=== PATIENT | female | born 1995 | race African-American/Black ===

== ENCOUNTER 2016-06-17 13:50 | Emergency (ER) | payer OTHER ==
[~2016-06-17] VITALS: Ht 114.3 cm; Wt 123.4 kg
[2016-06-17 14:05] VITALS: BP 200/87
[2016-06-17 14:58] LABS: OBC FLU VALID
--- NOTE | 2016-06-17 16:12 | RAD ---
Chest, 2 views, 06/17/2016: History: Cough, congestion, shortness of breath The AP view is lordotic in nature. The depth of inspiration is poor. No definite infiltrate is seen. The heart is at the upper limits of normal in size. There is no evidence of pleural fluid. IMPRESSION: Suboptimal exam demonstrating no acute abnormality.
[2016-06-17] MEDS ORDERED: PRED20TA PO (16:25)
[2016-06-17] MEDS ORDERED: BENZ200C39 PO (16:25)
[2016-06-17] MEDS ORDERED: PROAIR HFA8.5 GM INH (16:26)
[2016-06-17] MEDS ORDERED: FLUT1DIS5 IH (16:26)
[2016-06-17] MEDS ORDERED: ALBU2.5V5 NEB (16:26)
--- NOTE | 2016-06-17 16:26 | PHYS DOC ---
Past Medical History Past Medical History: Asthma Past Surgical History: Other Additional Past Surgical Histo: cleft lip and palate surgery as an Additional Information: nonsmoker Alcohol Use: None Drug Use: None Adult General Chief Complaint Chief Complaint: ASTHMA HPI HPI Patient is a 20 year old female with history of asthma who presents with cough and shortness of breath for 2 days. She states that the cough is nonproductive. She also has nasal congestion. She denies fever, sore throat, ear pain, chest pain, vomiting, diarrhea, or abdominal pain. She has been using her albuterol and Advair inhalers as well as Singulair at home for her asthma. She was last hospitalized for her asthma in September of last year. She has never required intubation for her asthma. She did receive a flu shot this year. The patient presented to the emergency department via EMS. She received a nebulizer treatment in route and reports improved breathing after the nebulizer treatment. Her PCP is Dr. Mireles. Review of Systems Review of Systems Constitutional: Denies fever or chills. [] Eyes: Denies change in visual acuity, redness, or eye pain. [] HENT: Denies ear pain or sore throat. Reports nasal congestion. Respiratory: Reports nonproductive cough and shortness of breath. Cardiovascular: Denies chest pain, palpitations or edema. [] GI: Denies abdominal pain, nausea, vomiting, bloody stools or diarrhea. [] Musculoskeletal: Denies back pain or joint pain. [] Integument: Denies rash or skin lesions. [] Neurologic: Denies headache, focal weakness or sensory changes. [] All systems reviewed and negative unless otherwise stated in the HPI. Allergies Allergies Allergies Coded Allergies Type Severity Reaction Last Updated Verified No Known Drug Allergies 11/20/14 No Physical Exam Physical Exam Constitutional: Well developed, well nourished, no acute distress, non-toxic appearance. [] HENT: Normocephalic, atraumatic, bilateral external ears normal, oropharynx moist, no oral exudates, nose normal. Bilateral TMs without erythema or bulging. There is no posterior pharyngeal erythema or tonsillar edema. Bilateral nasal turbinates are swollen and erythematous with purulent drainage. Eyes: PERRLA, EOMI, conjunctiva normal, no discharge. [] Neck: Normal range of motion, no tenderness, supple, no stridor. [] Cardiovascular: Heart rate regular rhythm, no murmur [] Lungs & Thorax: Bilateral breath sounds clear to auscultation without wheezes, rales, or rhonchi. Skin: Warm, dry, no erythema, no rash. [] Neurologic: Alert and oriented X 3, normal motor function, normal sensory function, no focal deficits noted. [] Psychologic: Affect normal, judgement normal, mood normal. [] Current Patient Data Vital Signs Vital Signs Date Time Temp Pulse Resp B/P Pulse Ox O2 Delivery O2 Flow Rate FiO2 06/17/16 14:05 98.2 116 22 99 Room Air 98.2 Lab Values Laboratory Tests Test 06/17/16 14:25 06/17/16 15:26 Influenza Type A Antigen Negative (NEGATIVE) Influenza Type B Antigen Negative (NEGATIVE) POC Urine HCG, Qualitative Hcg negative (Negative) EKG EKG [] Radiology/Procedures Radiology/Procedures REASON: cough, soa PROCEDURE: CHEST PA & LATERAL Chest, 2 views, 06/17/2016: History: Cough, congestion, shortness of breath The AP view is lordotic in nature. The depth of inspiration is poor. No definite infiltrate is seen. The heart is at the upper limits of normal in size. There is no evidence of pleural fluid. IMPRESSION: Suboptimal exam demonstrating no acute abnormality. Course & Med Decision Making Course & Med Decision Making Pertinent Labs and Imaging studies reviewed. (See chart for details) [] Dragon Disclaimer Dragon Disclaimer This electronic medical record was generated, in whole or in part, using a voice recognition dictation system. Departure Departure Impression: Primary Impression: Bronchitis Additional Impression: Asthma Disposition: 01 HOME, SELF-CARE Condition: STABLE Referrals: FARA MIRELES MD (PCP) Patient Instructions: Acute Bronchitis, [id number], Asthma, Adult, Easy-to- Read Additional Instructions: Your flu swab is negative. Chest x-ray does not show any pneumonia. Please complete all the prescribed steroids, even if you are feeling better. Please continue to use your at home asthma medications as directed. Please follow-up with your primary care doctor within the next week, sooner if concerns. Return to the emergency department if you have any new or concerning symptoms. Scripts Fluticasone/Salmeterol (Advair 500-50 Diskus)1 Each Disk.w.dev1 Puff IH BID #1 INHALER Prov:SEN SALINAS 06/17/16 Albuterol Sulfate (Albuterol Sulfate Neb Soln)2.5 Mg/3 Ml Vial.neb1 Vial NEB PRN Q4HRS PRN SHORTNESS OF BREATH #50 VIAL Prov:SEN SALINAS 06/17/16 Albuterol Sulfate (Proair Hfa Inhaler)8.5 Gm Hfa.aer.ad1 Puff INH Q4HRS PRN SHORTNESS OF BREATH #1 INHALER Prov:SEN SALINAS 06/17/16 Benzonatate 200 Mg Capsule1 Cap PO TID #30 CAP Prov:SEN SALINAS 06/17/16 Prednisone 20 Mg Qrhutm80 Mg PO DAILY 5 Days Prov:SEN SALINAS 06/17/16 Problem Qualifiers Additional Impression: Asthma Asthma severity: unspecified severity Asthma complication type: uncomplicated Qualified Code: J45.909 - Unspecified asthma, uncomplicated SEN SALINAS Jun 17, 2016 16:26
== END 2016-06-17 16:37 | disposition home or self-care (01) ==
LOC: ER 13:50
DX: J45.909 Unspecified asthma, uncomplicated (principal); Z79.899 Other long term (current) drug therapy; Z87.730 Personal history of (corrected) cleft lip and palate
CPT/HCPCS: 71020; 81025; 87804; 99285-25

== ENCOUNTER 2021-07-31 16:34 | Inpatient (IN) | payer MEDICAID, OTHER ==
[~2021-07-31] VITALS: Ht 119.4 cm; Wt 94.5 kg
[2021-07-31] VITALS (8 sets, daily range): BP systolic 105–157; BP diastolic 57–85
[~2021-07-31 16:34] MED LIST: ALBU2.5V5 NEB; ALBU2.5V8 INH; BENZ200C47 PO; FLUT1DIS5 IH; PRED20TA PO
[2021-07-31] MEDS ORDERED: IV NORMAL SALINE 1000ML BAG 1,000 ML IV ONE (17:30)
--- NOTE | 2021-07-31 17:34 | PHYS DOC ---
Past Medical History Past Medical History: Asthma, Diabetes-Type II (ELLA WASHINGTON APRN) Past Surgical History: No Surgical History Additional Past Surgical Histo: cleft lip and palate surgery as an infant (ELLA WASHINGTON APRN) Smoking Status: Never Smoker Alcohol Use: None Drug Use: None (ELLA WASHINGTON APRN) General Adult EDM: Chief Complaint: NAUSEA/VOMITING/DIARRHEA HPI: HPI: Patient is a 26-year-old female who presents today with vomiting. Her sister is at the bedside and is the primary historian during this HPI. Sister states that patient started vomiting approximately 1 week ago, she was seen by her primary care physician Dr. Shrestha at the [facility] on Tuesday, Dr. Shrestha thought the nausea and vomiting was related to her COVID booster injection that she received last week, and she thought her symptoms would improve, she presents today because her vomiting is not improved, and sister states over the last 2 days she has had decreased level of consciousness. S ister does state the patient is at type II diabetic that is supposed to take insulin on a daily basis, sister states the patient is noncompliant does not take that medication as prescribed she only takes her oral diabetes medications, she does not check her blood sugars on a regular basis according to the sister. (ELLA WASHINGTON APRN) Review of Systems: Review of Systems: Constitutional: Denies fever or chills. [] Eyes: Denies change in visual acuity. [] HENT: Denies nasal congestion or sore throat. [] Respiratory: Denies cough or shortness of breath. [] Cardiovascular: Denies chest pain or edema. [] GI: nausea, vomiting, denies bloody stools or diarrhea. [] : Denies dysuria. [] Musculoskeletal: Denies back pain or joint pain. [] Integument: Denies rash. [] Neurologic: decrease LOC Denies headache, focal weakness or sensory changes. [] Endocrine: Denies polyuria or polydipsia. [] Lymphatic: Denies swollen glands. [] Psychiatric: Denies depression or anxiety. [] (ELLA WASHINGTON APRN) Heart Score: C/O Chest Pain: No Risk Factors: Risk Factors: DM, Current or recent (<one month) smoker, HTN, HLP, family history of CAD, obesity. Risk Scores: Score 0 - 3: 2.5% MACE over next 6 weeks - Discharge Home Score 4 - 6: 20.3% MACE over next 6 weeks - Admit for Clinical Observation Score 7 - 10: 72.7% MACE over next 6 weeks - Early Invasive Strategies (ELLA WASHINGTON APRN) Allergies: Allergies: Allergies Coded Allergies Type Severity Reaction Last Updated Verified potassium chloride Allergy Intermediate 07/31/21 Yes (ELLA WASHINGTON APRN) Physical Exam: PE: Constitutional: Obese female in moderate distress HENT: Normocephalic, atraumatic, bilateral external ears normal, oropharynx dry, no oral exudates, nose normal. [] Eyes: PERRLA, EOMI, conjunctiva normal, no discharge. [] Neck: Normal range of motion, no tenderness, supple, no stridor. [] Cardiovascular:Heart rate tachycardic, peripheral pulses are 1+ Lungs & Thorax: Bilateral breath sounds clear to auscultation, increased work of breathing noted Abdomen: Bowel sounds normal, soft, no tenderness, no masses, no pulsatile masses. [] Skin: Warm, dry, no erythema, no rash. [] Back: No tenderness, no CVA tenderness. [] Extremities: No tenderness, no cyanosis, no clubbing, ROM intact, no edema. [] Neurologic: Alert and oriented X 3, normal motor function, normal sensory function, no focal deficits noted. [] Psychologic: Affect normal, judgement abnormal , mood normal. [] (ELLA WASHINGTON APRN) Current Patient Data: Labs: Laboratory Tests Test 07/31/21 17:24 07/31/21 17:29 O2 Saturation 97 % Arterial Blood pH 7.29 Arterial Blood pCO2 at Patient Temp < 15 mmHg Arterial Blood pO2 at Patient Temp 92 mmHg Arterial Blood HCO3 6 mmol/L Arterial Blood Base Excess -18 mmol/L FiO2 Room air White Blood Count 30.3 x10^3/uL Red Blood Count 3.97 x10^6/uL Hemoglobin 10.7 g/dL Hematocrit 35.5 % Mean Corpuscular Volume 90 fL Mean Corpuscular Hemoglobin 27 pg Mean Corpuscular Hemoglobin Concent 30 g/dL Red Cell Distribution Width 16.1 % Platelet Count 231 x10^3/uL Neutrophils (%) (Auto) 93 % Lymphocytes (%) (Auto) 2 % Monocytes (%) (Auto) 4 % Eosinophils (%) (Auto) 0 % Basophils (%) (Auto) 1 % Neutrophils # (Auto) 28.3 x10^3/uL Lymphocytes # (Auto) 0.5 x10^3/uL Monocytes # (Auto) 1.2 x10^3/uL Eosinophils # (Auto) 0.1 x10^3/uL Basophils # (Auto) 0.2 x10^3/uL Platelet Estimate Pending Maternal Serum HCG Beta Subunit < 1 mIU/mL Sodium Level 121 mmol/L Potassium Level 3.9 mmol/L Chloride Level 83 mmol/L Carbon Dioxide Level 9 mmol/L Anion Gap 29 Blood Urea Nitrogen 24 mg/dL Creatinine 2.2 mg/dL Estimated GFR (Cockcroft-Gault) 32.6 BUN/Creatinine Ratio 11 Glucose Level 868 mg/dL Lactic Acid Level 6.0 mmol/L Calcium Level 9.3 mg/dL Total Bilirubin 1.5 mg/dL Aspartate Amino Transf (AST/SGOT) 62 U/L Alanine Aminotransferase (ALT/SGPT) 50 U/L Alkaline Phosphatase 153 U/L Troponin I High Sensitivity 11 ng/L Total Protein 8.7 g/dL Albumin 2.5 g/dL Albumin/Globulin Ratio 0.4 Current Medications Medications (Trade) Dose Ordered Sig/Marjorie Route PRN Reason Start Time Stop Time Status Last Admin Dose Admin Sodium Chloride 1,000 ml @ 999 mls/hr 1X ONCE IV 07/31/21 17:30 07/31/21 18:30 DC 07/31/21 17:30 Ondansetron HCl (Zofran) 4 mg 1X ONCE IVP 07/31/21 18:30 07/31/21 18:31 DC Ondansetron HCl (Zofran) 4 mg PRN Q8HRS PRN IVP NAUSEA/VOMITING 07/31/21 19:00 08/01/21 18:59 Sodium Chloride 1,000 ml @ 1,000 mls/hr Q1H IV 07/31/21 19:00 07/31/21 19:59 Insulin Human Regular 100 unit/ Sodium Chloride 101 ml @ 0 mls/hr CONT PRN PRN IV PER PROTOCOL 07/31/21 19:00 Potassium Chloride/Water 100 ml @ 100 mls/hr PRN Q1HR PRN IV SEE COMMENTS 07/31/21 19:00 UNV Vital Signs: Vital Signs Date Time Temp Pulse Resp B/P (MAP) Pulse Ox O2 Delivery O2 Flow Rate FiO2 07/31/21 20:07 160 44 121/64 (83) 100 Room Air 07/31/21 19:37 163 18 128/68 (88) 100 Room Air 07/31/21 18:55 154 18 125/58 (80) 99 Room Air 07/31/21 18:24 148 28 64/56 (59) 99 Room Air 07/31/21 17:12 97.6 157 40 191/101 (131) 98 97.6 Vital Signs Date Time Temp Pulse Resp B/P (MAP) Pulse Ox O2 Delivery O2 Flow Rate FiO2 07/31/21 17:12 97.6 157 40 191/101 (131) 98 97.6 (ELLA WASHINGTON APRN) EKG: EKG: EKG done at [address] Angulo at 1803 shows sinus tachycardia at a rate of 153 with a NV interval of 124 ms with a QTC of 416 ms no STEMI [] EKG #2 done at [address] Hernandez at 1918 shows sinus tachycardia at a rate of 155 with PACs noted NV interval 144 ms with a QTC of 423 ms no STEMI (ELLA WASHINGTON APRN) Radiology/Procedures: Radiology/Procedures: [REASON: decrease mental status PROCEDURE: CT HEAD WO CONTRAST EXAM: CT HEAD WITHOUT CONTRAST. HISTORY: Altered mental status. TECHNIQUE: Computed tomography of the head was performed without intravenous contrast. One or more of the following individualized dose reduction techniques were utilized for this examination: 1. Automated exposure control. 2. Adjustment of the mA and/or kV according to patient size. 3. Use of iterative reconstruction technique. COMPARISON: None. FINDINGS: There is no intracranial hemorrhage. Slater-white differentiation is preserved. The ventricles are normal in size and position. The visualized paranasal sinuses appear clear. The orbits are unremarkable. The temporal bones are unremarkable. The calvarium reveals no suspicious lesions. IMPRESSION: 1. No acute intracranial findings. Electronically signed by: Sunday Fernandez MD (07/31/2021 7:10 PM) [facility]] (ELLA WASHINGTON APRN) Course & Med Decision Making: Course & Med Decision Making Pertinent Labs and Imaging studies reviewed. (See chart for details) 1715 [id number] glucose done at the bedside read high. [address] Perrin regarding this patient about admitting to the intensive care unit for DKA he is agreeable to admitting this patient, I will institute an IV insulin drip, and continue IV fluids. (ELLA WASHINGTON APRN) Course & Med Decision Making Patients Care and treatment plan provided by ER Nurse Practitioner. I reviewed test results. Recommended IV Fluids Insulin Patient's chart reviewed. Patient admitted to hospitalist-- who evaluated patient IN ER. (FRNAK HERNANDEZ DO) Dragon Disclaimer: Dragon Disclaimer: This electronic medical record was generated, in whole or in part, using a voice recognition dictation system. (ELLA WASHINGTON APRN) Departure Departure Impression: Primary Impression: DKA (diabetic ketoacidosis) Qualified Codes: E11.10 - Type 2 diabetes mellitus with ketoacidosis without coma Disposition: ADMITTED INPATIENT Admitting Physician: NADEEM (ELLA WASHINGTON APRN) Condition: GUARDED ELLA WASHINGTON APRN Jul 31, 2021 17:33 FRANK HERNANDEZ DO Jul 31, 2021 20:37
[2021-07-31 17:43] LABS: BASO # 0.2 x10^3/uL (0.0-0.2); BASO % 1 % (0-3); EOS # 0.1 x10^3/uL (0.0-0.7); EOS % 0 % (0-3); HEMATOCRIT 35.5 % (36.0-47.0); HEMOGLOBIN 10.7 g/dL (12.0-15.5); LYMPH # 0.5 x10^3/uL (1.0-4.8); LYMPH % 2 % (24-48); MEAN CORPUSCULAR HEMOGLOBIN 27 pg (25-35); MEAN CORPUSCULAR HGB CONC 30 g/dL (31-37); MEAN CORPUSCULAR VOLUME 90 fL (79-100); MONO # 1.2 x10^3/uL (0.0-1.1); MONO % 4 % (0-9); NEUT # 28.3 x10^3/uL (1.8-7.7); NEUT % 93 % (31-73); PLATELET COUNT 231 x10^3/uL (140-400); RED BLOOD COUNT 3.97 x10^6/uL (3.50-5.40); RED CELL DISTRIBUTION WIDTH 16.1 % (11.5-14.5); WHITE BLOOD COUNT 30.3 x10^3/uL (4.0-11.0)
[2021-07-31 18:00] LABS: BASE EXCESS ABG -18 mmol/L (-3-3); HCO3 ABG 6 mmol/L (21-28); PO2 ABG 92 mmHg (85-108); SAT O2 ABG 97 % (92-99)
[2021-07-31 18:01] LABS: FIO2 ABG Room Air
[2021-07-31 18:04] LABS: ALBUMIN 2.5 g/dL (3.4-5.0); ALBUMIN/GLOBULIN RATIO 0.4 (1.0-1.7); CALCIUM 9.3 mg/dL (8.5-10.1); CREATININE 2.2 mg/dL (0.6-1.0); GFR 32.6; POTASSIUM 3.9 mmol/L (3.5-5.1); TOTAL BILIRUBIN 1.5 mg/dL (0.2-1.0); TOTAL PROTEIN 8.7 g/dL (6.4-8.2)
[2021-07-31] MEDS ORDERED: ONDANSETRON PF 4 MG/2 ML VIAL. IVP ONE (18:30)
[2021-07-31] MEDS ORDERED: POTASSIUM CHLORIDE 10MEQ 100 ML IV PRN (19:00)
[2021-07-31] MEDS ORDERED: IV NORMAL SALINE 1000ML BAG 1,000 ML IV SCH (19:00)
[2021-07-31] MEDS ORDERED: ONDANSETRON PF 4 MG/2 ML VIAL. IVP PRN ×2 (19:00→21:15)
--- NOTE | 2021-07-31 19:12 | RAD ---
EXAM: CT HEAD WITHOUT CONTRAST. HISTORY: Altered mental status. TECHNIQUE: Computed tomography of the head was performed without intravenous contrast. One or more of the following individualized dose reduction techniques were utilized for this examination: 1. Automated exposure control. 2. Adjustment of the mA and/or kV according to patient size. 3. Use of iterative reconstruction technique. COMPARISON: None. FINDINGS: There is no intracranial hemorrhage. Slater-white differentiation is preserved. The ventricle s are normal in size and position. The visualized paranasal sinuses appear clear. The orbits are unremarkable. The temporal bones are un remarkable. The calvarium reveals no suspicious lesions. IMPRESSION: 1. No acute intracranial findings. Electronically signed by: Sunday Fernandez MD (07/31/2021 7:10 PM) [facility]
--- NOTE | 2021-07-31 19:37 | RAD ---
EXAM: CHEST ONE VIEW. HISTORY: Shortness of breath. COMPARISON: 06/17/2016. FINDINGS: A frontal view of the chest is obtained. The inspiration is small and the projection lordotic. There is no pneumothorax or pleural effusion. P rominence of the heart size is likely projectional. IMPRESSION: 1. Projectional limitations. No confluent infiltrates. Electronically signed by: Sunday Fernandez MD (07/31/2021 7:35 PM) [facility]
[2021-07-31 19:52] LABS: % BANDS 30 % (0-9); % LYMPHS 3 % (24-48); % METAS 1 % (0-0); % MONOS 4 % (0-10); % SEGS 62 % (35-66)
[2021-07-31 19:54] LABS: PLT ESTIMATE ADEQUATE (ADEQUATE); TOXIC VACUOLATION MOD
--- NOTE | 2021-07-31 21:13 | PDOC1 ---
History and Physical Date of Admission Date of Admission DATE: 07/31/21 TIME: 20:54 Identification/Chief Complaint Chief Complaint Nausea and vomiting Source Source: Patient History of Present Illness History of Present Illness Patient is a 26-year-old female with past medical history DM2, asthma, HTN, who presents to the ED with complaints of nausea and vomiting. Patient states she has been having nausea and vomiting since 07/15/2021. For type 2 diabetes she takes Januvia, Metformin, and insulin. Along with nausea and vomiting she does admit to urinary frequency over the same time period. Patient admits to analy a lways being compliant with her home insulin. She lives at home with her sisters and 2 nieces. Labs admission showed WBC 30.3, hemoglobin 10.7, hematocrit 35.5, sodium 121, bicarb 9, BUN 24, creatinine 2.2, CBG 868, lactic acid 6.0, albumin 2.5, anion gap 29. Patient was given 2 L normal saline and initiated on insulin drip and DKA protocol. She will be admitted to the ICU for further medical management. Past Medical History Cardiovascular: HTN Pulmonary: Asthma Endocrine: Diabetes Past Surgical History Past Surgical History Cleft lip repair Family History Family History: Hypertension Social History Smoke: No ALCOHOL: none Drugs: None Current Problem List Problem List Problems Medical Problems: (1) DKA (diabetic ketoacidosis) Status: Acute Current Medications Current Medications Current Medications Sodium Chloride 1,000 ml @ 999 mls/hr 1X ONCE IV Last administered on 07/31/21at 17:30; Start 07/31/21 at 17:30; Stop 07/31/21 at 18:30; Status DC Ondansetron HCl (Zofran) 4 mg 1X ONCE IVP Last administered on 07/31/21at 20:04; Start 07/31/21 at 18:30; Stop 07/31/21 at 18:31; Status DC Ondansetron HCl (Zofran) 4 mg PRN Q8HRS PRN IVP NAUSEA/VOMITING; Start 07/31/21 at 19:00; Stop 08/01/21 at 18:59 Sodium Chloride 1,000 ml @ 1,000 mls/hr Q1H IV Last administered on 07/31/21at 19:40; Start 07/31/21 at 19:00; Stop 07/31/21 at 19:59; Status DC Insulin Human Regular 100 unit/ Sodium Chloride 101 ml @ 0 mls/hr CONT PRN PRN IV PER PROTOCOL; Start 07/31/21 at 19:00 Potassium Chloride/Water 100 ml @ 100 mls/hr PRN Q1HR PRN IV SEE COMMENTS; Start 07/31/21 at 19:00 Active Scripts Active Advair 500-50 Diskus (Fluticasone/Salmeterol) 1 Each Disk.w.dev 1 Puff IH BID Albuterol Sulfate Neb Soln (Albuterol Sulfate) 2.5 Mg/3 Ml Vial.neb 1 Vial NEB PRN Q4HRS PRN Proair Hfa Inhaler (Albuterol Sulfate) 8.5 Gm Hfa.aer.ad 1 Puff INH Q4HRS PRN Benzonatate 200 Mg Capsule 1 Cap PO TID Prednisone 20 Mg Tablet 40 Mg PO DAILY 5 Days Allergies Allergies: Coded Allergies: potassium chloride (Verified Adverse Reaction, Unknown, "PALMS PEEL", 07/31/21) ROS Review of System GENERAL: No history of weight change, weakness or fevers. SKIN: No bruising, hair changes or rashes. EYES: No blurred, double or loss of vision. NOSE AND THROAT: No history of nosebleeds, hoarseness or sore throat. HEART: Denies chest pain, denies palpitations. LUNGS: Denies cough, hemoptysis, wheezing or shortness of breath. GASTROINTESTINAL: Nausea and vomiting. Denies abdominal pain. GENITOURINARY: Urinary frequency and urgency. Denies dysuria, hematuria. NEUROLOGIC: Denies history of numbness, tingling, tremor or weakness. PSYCHIATRIC: Denies anxiety, denies depression. ENDOCRINE: No history of heat or cold intolerance, polyuria or polydipsia. EXTREMITIES: Denies muscle weakness, joint pain, pain on walking or stiffness. Physical Exam Physical Exam General: Alert, Oriented X3, Cooperative, no acute distress HEENT: Cleft lip, EOMI Lungs: Decreased breath sounds bilaterally Heart: Tachycardic Cardiovascular: S1, S2, S3 Abdomen: Normal bowel sounds, Soft, No tenderness Extremities: Bilateral leg edema Skin: No breakdown, No significant lesion Neuro: Normal speech, Sensation intact Psych/Mental Status: Mental status NL, Mood NL Vitals Vitals Vital Signs Date Time Temp Pulse Resp B/P (MAP) Pulse Ox O2 Delivery O2 Flow Rate FiO2 07/31/21 20:07 160 44 121/64 (83) 100 Room Air 07/31/21 17:12 97.6 97.6 Labs Labs Laboratory Tests Test 07/31/21 17:24 07/31/21 17:29 07/31/21 20:00 O2 Saturation 97 % (92-99) Arterial Blood pH 7.29 (7.35-7.45) Arterial Blood pCO2 at Patient Temp < 15 mmHg (35-46) Arterial Blood pO2 at Patient Temp 92 mmHg (85-108) Arterial Blood HCO3 6 mmol/L (21-28) Arterial Blood Base Excess -18 mmol/L (-3-3) FiO2 Room air White Blood Count 30.3 x10^3/uL (4.0-11.0) Red Blood Count 3.97 x10^6/uL (3.50-5.40) Hemoglobin 10.7 g/dL (12.0-15.5) Hematocrit 35.5 % (36.0-47.0) Mean Corpuscular Volume 90 fL (79-100) Mean Corpuscular Hemoglobin 27 pg (25-35) Mean Corpuscular Hemoglobin Concent 30 g/dL (31-37) Red Cell Distribution Width 16.1 % (11.5-14.5) Platelet Count 231 x10^3/uL (140-400) Neutrophils (%) (Auto) 93 % (31-73) Lymphocytes (%) (Auto) 2 % (24-48) Monocytes (%) (Auto) 4 % (0-9) Eosinophils (%) (Auto) 0 % (0-3) Basophils (%) (Auto) 1 % (0-3) Neutrophils # (Auto) 28.3 x10^3/uL (1.8-7.7) Lymphocytes # (Auto) 0.5 x10^3/uL (1.0-4.8) Monocytes # (Auto) 1.2 x10^3/uL (0.0-1.1) Eosinophils # (Auto) 0.1 x10^3/uL (0.0-0.7) Basophils # (Auto) 0.2 x10^3/uL (0.0-0.2) Segmented Neutrophils % 62 % (35-66) Band Neutrophils % 30 % (0-9) Lymphocytes % 3 % (24-48) Monocytes % 4 % (0-10) Metamyelocytes % 1 % (0-0) Toxic Vacuolation Mod Dohle Bodies Few Platelet Estimate Adequate (ADEQUATE) Large Platelets Few Giant Platelets Occ Maternal Serum HCG Beta Subunit < 1 mIU/mL (0-5) Sodium Level 121 mmol/L (136-145) Potassium Level 3.9 mmol/L (3.5-5.1) Chloride Level 83 mmol/L (98-107) Carbon Dioxide Level 9 mmol/L (21-32) Anion Gap 29 (6-14) Blood Urea Nitrogen 24 mg/dL (7-20) Creatinine 2.2 mg/dL (0.6-1.0) Estimated GFR (Cockcroft-Gault) 32.6 BUN/Creatinine Ratio 11 (6-20) Glucose Level 868 mg/dL (70-99) 846 mg/dL (70-99) Lactic Acid Level 6.0 mmol/L (0.4-2.0) Calcium Level 9.3 mg/dL (8.5-10.1) Total Bilirubin 1.5 mg/dL (0.2-1.0) Aspartate Amino Transf (AST/SGOT) 62 U/L (15-37) Alanine Aminotransferase (ALT/SGPT) 50 U/L (14-59) Alkaline Phosphatase 153 U/L (46-116) Troponin I High Sensitivity 11 ng/L (4-50) Total Protein 8.7 g/dL (6.4-8.2) Albumin 2.5 g/dL (3.4-5.0) Albumin/Globulin Ratio 0.4 (1.0-1.7) Phosphorus Level 2.0 mg/dL (2.6-4.7) Magnesium Level 2.0 mg/dL (1.8-2.4) Laboratory Tests Test 07/31/21 17:24 07/31/21 17:29 07/31/21 20:00 O2 Saturation 97 % (92-99) Arterial Blood pH 7.29 (7.35-7.45) Arterial Blood pCO2 at Patient Temp < 15 mmHg (35-46) Arterial Blood pO2 at Patient Temp 92 mmHg (85-108) Arterial Blood HCO3 6 mmol/L (21-28) Arterial Blood Base Excess -18 mmol/L (-3-3) FiO2 Room air White Blood Count 30.3 x10^3/uL (4.0-11.0) Red Blood Count 3.97 x10^6/uL (3.50-5.40) Hemoglobin 10.7 g/dL (12.0-15.5) Hematocrit 35.5 % (36.0-47.0) Mean Corpuscular Volume 90 fL (79-100) Mean Corpuscular Hemoglobin 27 pg (25-35) Mean Corpuscular Hemoglobin Concent 30 g/dL (31-37) Red Cell Distribution Width 16.1 % (11.5-14.5) Platelet Count 231 x10^3/uL (140-400) Neutrophils (%) (Auto) 93 % (31-73) Lymphocytes (%) (Auto) 2 % (24-48) Monocytes (%) (Auto) 4 % (0-9) Eosinophils (%) (Auto) 0 % (0-3) Basophils (%) (Auto) 1 % (0-3) Neutrophils # (Auto) 28.3 x10^3/uL (1.8-7.7) Lymphocytes # (Auto) 0.5 x10^3/uL (1.0-4.8) Monocytes # (Auto) 1.2 x10^3/uL (0.0-1.1) Eosinophils # (Auto) 0.1 x10^3/uL (0.0-0.7) Basophils # (Auto) 0.2 x10^3/uL (0.0-0.2) Segmented Neutrophils % 62 % (35-66) Band Neutrophils % 30 % (0-9) Lymphocytes % 3 % (24-48) Monocytes % 4 % (0-10) Metamyelocytes % 1 % (0-0) Toxic Vacuolation Mod Dohle Bodies Few Platelet Estimate Adequate (ADEQUATE) Large Platelets Few Giant Platelets Occ Maternal Serum HCG Beta Subunit < 1 mIU/mL (0-5) Sodium Level 121 mmol/L (136-145) Potassium Level 3.9 mmol/L (3.5-5.1) Chloride Level 83 mmol/L (98-107) Carbon Dioxide Level 9 mmol/L (21-32) Anion Gap 29 (6-14) Blood Urea Nitrogen 24 mg/dL (7-20) Creatinine 2.2 mg/dL (0.6-1.0) Estimated GFR (Cockcroft-Gault) 32.6 BUN/Creatinine Ratio 11 (6-20) Glucose Level 868 mg/dL (70-99) 846 mg/dL (70-99) Lactic Acid Level 6.0 mmol/L (0.4-2.0) Calcium Level 9.3 mg/dL (8.5-10.1) Total Bilirubin 1.5 mg/dL (0.2-1.0) Aspartate Amino Transf (AST/SGOT) 62 U/L (15-37) Alanine Aminotransferase (ALT/SGPT) 50 U/L (14-59) Alkaline Phosphatase 153 U/L (46-116) Troponin I High Sensitivity 11 ng/L (4-50) Total Protein 8.7 g/dL (6.4-8.2) Albumin 2.5 g/dL (3.4-5.0) Albumin/Globulin Ratio 0.4 (1.0-1.7) Phosphorus Level 2.0 mg/dL (2.6-4.7) Magnesium Level 2.0 mg/dL (1.8-2.4) Images Images PATIENT: ANDRIY SHOTR ACCOUNT: [id number] : 1995 LOCATION: ER AGE: 26 SEX: F EXAM STATUS: REG ER ORD. PHYSICIAN: ELLA WASHINGTON APRN REASON: SOA PROCEDURE: CHEST AP ONLY EXAM: CHEST ONE VIEW. HISTORY: Shortness of breath. COMPARISON: 06/17/2016. FINDINGS: A frontal view of the chest is obtained. The inspiration is small and the projection lordotic. There is no pneumothorax or pleural effusion. Prominence of the heart size is likely projectional. IMPRESSION: 1. Projectional limitations. No confluent infiltrates. PATIENT: ANDRIY SHORT ACCOUNT: [id number] : 1995 LOCATION: ER AGE: 26 SEX: F EXAM STATUS: REG ER ORD. PHYSICIAN: ELLA WASHINGTON APRN REASON: decrease mental status PROCEDURE: CT HEAD WO CONTRAST EXAM: CT HEAD WITHOUT CONTRAST. HISTORY: Altered mental status. TECHNIQUE: Computed tomography of the head was performed without intravenous contrast. One or more of the following individualized dose reduction techniques were utilized for this examination: 1. Automated exposure control. 2. Adjustment of the mA and/or kV according to patient size. 3. Use of iterative reconstruction technique. COMPARISON: None. FINDINGS: There is no intracranial hemorrhage. Slater-white differentiation is preserved. The ventricles are normal in size and position. The visualized paranasal sinuses appear clear. The orbits are unremarkable. The temporal bones are unremarkable. The calvarium reveals no suspicious lesions. IMPRESSION: 1. No acute intracranial findings. VTE Prophylaxis Ordered VTE Prophylaxis Devices: No VTE Pharmacological Prophylaxi: Yes Assessment/Plan Assessment/Plan Sepsis DKA SEVERO Hypertensive urgency Lactic acidosis Severe protein malnutrition Plan: We will initiate insulin infusion and DKA protocol Hemoglobin A1c pending. Due to noncompliance with insulin she may also benefit from DPP 4 inhibitor or GLP-1 agonist. Urinalysis pending Will obtain Echocardiogram due to concerm for some degree of heart failure and S3 heart sound Patient's family notes a drug reaction to KCl there is skin peeling and erythema. Will monitor. IV Benadryl as needed FEN - NPO PPX - SCDs FULL CODE Dispo - inpatient for above Critical care time 33 minutes spent reviewing labs, reviewing imaging, discussion with RN. Justifications for Admission Other Justification LAN COATES MD Jul 31, 2021 21:13
[2021-07-31] MEDS ORDERED: MAG HYDROX/ALUMINUM HYD/SIMETH 30 ML ORAL.SUSP PO PRN (21:15)
[2021-07-31] MEDS ORDERED: diphenhydrAMINE 50 MG/ML VIAL IVP PRN (21:15)
[2021-07-31] MEDS ORDERED: PROCHLORPERAZINE 10 MG/2 ML VIAL. IVP PRN (21:15)
[2021-07-31] MEDS ORDERED: 0.9 % SODIUM CHLORIDE 10 ML DISP.SYRIN. IV PRN (21:15)
[2021-07-31] MEDS ORDERED: MORPHINE SULFATE 2 MG/ML INJ. IV PRN (21:15)
[2021-07-31] MEDS ORDERED: ZOLPIDEM 5 MG TABLET. PO PRN (21:15)
[2021-07-31] MEDS ORDERED: CALCIUM CARBONATE 500 MG TAB.CHEW PO PRN (21:15)
[2021-07-31] MEDS ORDERED: hydrALAZINE 20 MG/ML VIAL. IVP PRN (21:15)
[2021-07-31] MEDS: ACETAMINOPHEN 325 MG TABLET. PO PRN (22:22)
[2021-07-31] MEDS: INSULIN REGULAR VIAL 100 UNIT in IV NORMAL SALINE 100ML 100 ML IV PRN (22:24)
[2021-07-31 22:50] LABS: BACTERIA,URINE MANY /HPF (0-FEW); RBC,URINE OCC /HPF (0-2); WBC,URINE TNTC /HPF (0-4)
[2021-07-31 23:06] LABS: CALCIUM 7.8 mg/dL (8.5-10.1); CREATININE 2.1 mg/dL (0.6-1.0); GFR 34.4; MAGNESIUM 1.6 mg/dL (1.8-2.4); PHOSPHORUS 1.3 mg/dL (2.6-4.7)
[2021-07-31 23:08] LABS: POTASSIUM 2.7 mmol/L (3.5-5.1)
[2021-07-31] MEDS: cefTRIAXone IV Push 1 GM VIAL. IVP SCH (23:37)
[2021-07-31] MEDS: POTASSIUM PHOSPHATE DIBASIC IV SCH (23:38)
[2021-07-31] MEDS: NS IV SCH (23:38)
[2021-08-01] VITALS (24 sets, daily range): BP systolic 82–188; BP diastolic 55–108
[2021-08-01] MEDS: MAGNESIUM SULFATE 1GM 100 ML IV SCH ×2 (00:14→08:54)
[2021-08-01] MEDS: NS IV SCH ×5 (01:57→10:35)
[2021-08-01] MEDS: POTASSIUM PHOSPHATE DIBASIC IV SCH ×5 (01:57→10:35)
[2021-08-01] MEDS: INSULIN REGULAR VIAL 100 UNIT in IV NORMAL SALINE 100ML 100 ML IV PRN ×3 (03:06→18:03)
[2021-08-01] MEDS ORDERED: IV NORMAL SALINE 1000ML BAG 1,000 ML IV ONE ×2 (04:15→19:30)
[2021-08-01 04:22] LABS: BASO % 0 % (0-3); EOS # 2.4 x10^3/uL (0.0-0.7); EOS % 14 % (0-3); HEMATOCRIT 31.5 % (36.0-47.0); HEMOGLOBIN 9.8 g/dL (12.0-15.5); LYMPH # 0.8 x10^3/uL (1.0-4.8); LYMPH % 5 % (24-48); MEAN CORPUSCULAR HEMOGLOBIN 27 pg (25-35); MEAN CORPUSCULAR HGB CONC 31 g/dL (31-37); MEAN CORPUSCULAR VOLUME 86 fL (79-100); MONO % 6 % (0-9); NEUT # 13.1 x10^3/uL (1.8-7.7); NEUT % 76 % (31-73); PLATELET COUNT 150 x10^3/uL (140-400); RED BLOOD COUNT 3.68 x10^6/uL (3.50-5.40); RED CELL DISTRIBUTION WIDTH 15.4 % (11.5-14.5); WHITE BLOOD COUNT 17.3 x10^3/uL (4.0-11.0)
[2021-08-01 04:31] LABS: CALCIUM 7.8 mg/dL (8.5-10.1); CREATININE 2.1 mg/dL (0.6-1.0); GFR 34.4
[2021-08-01 04:34] LABS: POTASSIUM 2.7 mmol/L (3.5-5.1)
[2021-08-01 04:35] LABS: MAGNESIUM 1.9 mg/dL (1.8-2.4); PHOSPHORUS 1.1 mg/dL (2.6-4.7)
[2021-08-01] MEDS: IV DEXTROSE 5% - 0.9 % NACL 1,000 ML IV SCH ×5 (05:14→22:02)
[2021-08-01 05:40] LABS: INFLUENZA A PATIENT NEGATIVE (NEGATIVE); INFLUENZA B PATIENT NEGATIVE (NEGATIVE)
--- NOTE | 2021-08-01 06:25 | NUR ---
Unable to complete medication reconciliation due to patient is a poor historian and family has not been present. Admission information taken from ER records and [facility]
[2021-08-01] MEDS: FAMOTIDINE 20 MG/2 ML VIAL IVP SCH ×2 (08:49→20:01)
[2021-08-01] MEDS: ELECTROLYTE (ICU) PROTOCOL. MC SCH (09:00)
[2021-08-01 11:26] LABS: CALCIUM 7.3 mg/dL (8.5-10.1); CREATININE 2.2 mg/dL (0.6-1.0); GFR 32.6; PHOSPHORUS 2.8 mg/dL (2.6-4.7); POTASSIUM 3.6 mmol/L (3.5-5.1)
[2021-08-01] MEDS: POTASSIUM PHOS,M-BASIC-D-BASIC 15 MMOL in IV NORMAL SALINE 100ML 100 ML IV SCH ×4 (12:07→21:58)
--- NOTE | 2021-08-01 14:38 | PDOC ---
[employer] PROGRESS NOTE Date of Service DOS: DATE: 08/01/21 TIME: 14:33 Chief Complaint Chief Complaint Sepsis DKA SEVERO Hypertensive urgency Lactic acidosis Severe protein malnutrition UTI History of Present Illness History of Present Illness 08/01: Patient seen in ICU with family at bedside. Sister reports that patient is noncompliant with insulin. Urinalysis consistent with acute cystitis. Urine culture and sensitivity pending; continue Rocephin. Patient remains on insulin infusion. Discussed with patient sister, if she is noncompliant with insulin then will discharge she will need an additional oral hypoglycemic agent. Hemoglobin A1c pending; patient is already on Jardiance and Metformin. Critical care time 30 minutes spent reviewing charts, reviewing labs, reviewing imaging, discussion with family, discussion with RN. Vitals/I&O Vitals/I&O: Vital Signs Date Time Temp Pulse Resp B/P (MAP) Pulse Ox O2 Delivery O2 Flow Rate FiO2 08/01/21 14:00 148 46 130/73 (92) 99 Room Air 08/01/21 12:00 99.5 99.5 I & O 07/31/21 07/31/21 08/01/21 15:00 23:00 07:00 Intake Total 2000 ml 3551 ml Output Total 350 ml 415 ml Balance 1650 ml 3136 ml Physical Exam General: Alert, Cooperative, No acute distress Heart: Regular rate Lungs: Clear Abdomen: Soft, No tenderness Extremities: No clubbing, No cyanosis Skin: No rashes, No breakdown Labs Labs: Laboratory Tests Test 07/31/21 17:24 07/31/21 17:29 07/31/21 20:00 07/31/21 20:50 O2 Saturation 97 % (92-99) Arterial Blood pH 7.29 (7.35-7.45) Arterial Blood pCO2 at Patient Temp < 15 mmHg (35-46) Arterial Blood pO2 at Patient Temp 92 mmHg (85-108) Arterial Blood HCO3 6 mmol/L (21-28) Arterial Blood Base Excess -18 mmol/L (-3-3) FiO2 Room air White Blood Count 30.3 x10^3/uL (4.0-11.0) Red Blood Count 3.97 x10^6/uL (3.50-5.40) Hemoglobin 10.7 g/dL (12.0-15.5) Hematocrit 35.5 % (36.0-47.0) Mean Corpuscular Volume 90 fL (79-100) Mean Corpuscular Hemoglobin 27 pg (25-35) Mean Corpuscular Hemoglobin Concent 30 g/dL (31-37) Red Cell Distribution Width 16.1 % (11.5-14.5) Platelet Count 231 x10^3/uL (140-400) Neutrophils (%) (Auto) 93 % (31-73) Lymphocytes (%) (Auto) 2 % (24-48) Monocytes (%) (Auto) 4 % (0-9) Eosinophils (%) (Auto) 0 % (0-3) Basophils (%) (Auto) 1 % (0-3) Neutrophils # (Auto) 28.3 x10^3/uL (1.8-7.7) Lymphocytes # (Auto) 0.5 x10^3/uL (1.0-4.8) Monocytes # (Auto) 1.2 x10^3/uL (0.0-1.1) Eosinophils # (Auto) 0.1 x10^3/uL (0.0-0.7) Basophils # (Auto) 0.2 x10^3/uL (0.0-0.2) Segmented Neutrophils % 62 % (35-66) Band Neutrophils % 30 % (0-9) Lymphocytes % 3 % (24-48) Monocytes % 4 % (0-10) Metamyelocytes % 1 % (0-0) Toxic Vacuolation Mod Dohle Bodies Few Platelet Estimate Adequate (ADEQUATE) Large Platelets Few Giant Platelets Occ Maternal Serum HCG Beta Subunit < 1 mIU/mL (0-5) Sodium Level 121 mmol/L (136-145) Potassium Level 3.9 mmol/L (3.5-5.1) Chloride Level 83 mmol/L (98-107) Carbon Dioxide Level 9 mmol/L (21-32) Anion Gap 29 (6-14) Blood Urea Nitrogen 24 mg/dL (7-20) Creatinine 2.2 mg/dL (0.6-1.0) Estimated GFR (Cockcroft-Gault) 32.6 BUN/Creatinine Ratio 11 (6-20) Glucose Level 868 mg/dL (70-99) 846 mg/dL (70-99) Lactic Acid Level 6.0 mmol/L (0.4-2.0) 4.8 mmol/L (0.4-2.0) Calcium Level 9.3 mg/dL (8.5-10.1) Total Bilirubin 1.5 mg/dL (0.2-1.0) Aspartate Amino Transf (AST/SGOT) 62 U/L (15-37) Alanine Aminotransferase (ALT/SGPT) 50 U/L (14-59) Alkaline Phosphatase 153 U/L (46-116) Troponin I High Sensitivity 11 ng/L (4-50) Total Protein 8.7 g/dL (6.4-8.2) Albumin 2.5 g/dL (3.4-5.0) Albumin/Globulin Ratio 0.4 (1.0-1.7) Phosphorus Level 2.0 mg/dL (2.6-4.7) Magnesium Level 2.0 mg/dL (1.8-2.4) Test 07/31/21 22:10 07/31/21 22:45 07/31/21 23:33 08/01/21 00:40 Urine Collection Type Unknown Urine Color (Auto) Yellow Urine Turbidity Hazy Urine pH (Auto) 5.5 (<5.0-8.0) Urine Specific [place] 1.015 (1.000-1.030) Urine Protein (Auto) 70 mg/dL (Negative) Urine Glucose (Auto)(UA) >=1000 mg/dL (Negative) Urine Ketones (Auto) 40 mg/dL (Negative) Urine Blood (Auto) Large (Negative) Urine Nitrite Negative (Negative) Urine Bilirubin (Auto) Negative (Negative) Urine Urobilinogen (Auto) 2 mg/dL (Normal) Urine Leukocyte Esterase (Auto) Large (Negative) Urine RBC Occ /HPF (0-2) Urine WBC Tntc /HPF (0-4) Urine Squamous Epithelial Cells Occ /LPF Urine Transitional Epithelial Cells Occ /LPF Urine Bacteria Many /HPF (0-FEW) Urine Mucus Slight /LPF Sodium Level 126 mmol/L (136-145) Potassium Level 2.7 mmol/L (3.5-5.1) Chloride Level 92 mmol/L (98-107) Carbon Dioxide Level 9 mmol/L (21-32) Anion Gap 25 (6-14) Blood Urea Nitrogen 28 mg/dL (7-20) Creatinine 2.1 mg/dL (0.6-1.0) Estimated GFR (Cockcroft-Gault) 34.4 Glucose Level 647 mg/dL (70-99) Calcium Level 7.8 mg/dL (8.5-10.1) Phosphorus Level 1.3 mg/dL (2.6-4.7) Magnesium Level 1.6 mg/dL (1.8-2.4) Glucose (Fingerstick) 479 mg/dL (70-99) 416 mg/dL (70-99) Test 08/01/21 00:55 08/01/21 01:31 08/01/21 02:41 08/01/21 03:45 Influenza Type A Antigen Negative (NEGATIVE) Influenza Type B Antigen Negative (NEGATIVE) SARS-CoV-2 Antigen (Rapid) Negative (NEGATIVE) Glucose (Fingerstick) 426 mg/dL (70-99) 367 mg/dL (70-99) White Blood Count 17.3 x10^3/uL (4.0-11.0) Red Blood Count 3.68 x10^6/uL (3.50-5.40) Hemoglobin 9.8 g/dL (12.0-15.5) Hematocrit 31.5 % (36.0-47.0) Mean Corpuscular Volume 86 fL (79-100) Mean Corpuscular Hemoglobin 27 pg (25-35) Mean Corpuscular Hemoglobin Concent 31 g/dL (31-37) Red Cell Distribution Width 15.4 % (11.5-14.5) Platelet Count 150 x10^3/uL (140-400) Neutrophils (%) (Auto) 76 % (31-73) Lymphocytes (%) (Auto) 5 % (24-48) Monocytes (%) (Auto) 6 % (0-9) Eosinophils (%) (Auto) 14 % (0-3) Basophils (%) (Auto) 0 % (0-3) Neutrophils # (Auto) 13.1 x10^3/uL (1.8-7.7) Lymphocytes # (Auto) 0.8 x10^3/uL (1.0-4.8) Monocytes # (Auto) 1.0 x10^3/uL (0.0-1.1) Eosinophils # (Auto) 2.4 x10^3/uL (0.0-0.7) Basophils # (Auto) 0.0 x10^3/uL (0.0-0.2) Sodium Level 134 mmol/L (136-145) Potassium Level 2.7 mmol/L (3.5-5.1) Chloride Level 100 mmol/L (98-107) Carbon Dioxide Level 14 mmol/L (21-32) Anion Gap 20 (6-14) Blood Urea Nitrogen 24 mg/dL (7-20) Creatinine 2.1 mg/dL (0.6-1.0) Estimated GFR (Cockcroft-Gault) 34.4 Glucose Level 339 mg/dL (70-99) Calcium Level 7.8 mg/dL (8.5-10.1) Phosphorus Level 1.1 mg/dL (2.6-4.7) Magnesium Level 1.9 mg/dL (1.8-2.4) Thyroid Stimulating Hormone (TSH) 1.358 uIU/mL (0.358-3.74) Test 08/01/21 03:46 08/01/21 04:52 08/01/21 05:57 08/01/21 07:03 Glucose (Fingerstick) 321 mg/dL (70-99) 231 mg/dL (70-99) 181 mg/dL (70-99) 182 mg/dL (70-99) Test 08/01/21 08:07 08/01/21 09:09 08/01/21 10:08 08/01/21 11:00 Glucose (Fingerstick) 191 mg/dL (70-99) 171 mg/dL (70-99) 161 mg/dL (70-99) Sodium Level 133 mmol/L (136-145) Potassium Level 3.6 mmol/L (3.5-5.1) Chloride Level 103 mmol/L (98-107) Carbon Dioxide Level 13 mmol/L (21-32) Anion Gap 17 (6-14) Blood Urea Nitrogen 24 mg/dL (7-20) Creatinine 2.2 mg/dL (0.6-1.0) Estimated GFR (Cockcroft-Gault) 32.6 Glucose Level 173 mg/dL (70-99) Calcium Level 7.3 mg/dL (8.5-10.1) Phosphorus Level 2.8 mg/dL (2.6-4.7) Magnesium Level 2.0 mg/dL (1.8-2.4) Test 08/01/21 11:10 08/01/21 12:02 08/01/21 12:56 Glucose (Fingerstick) 155 mg/dL (70-99) 164 mg/dL (70-99) 151 mg/dL (70-99) Assessment and Plan Assessmemt and Plan Problems Medical Problems: (1) DKA (diabetic ketoacidosis) Status: Acute Comment Review of Relevant I have reviewed the following items maribel (where applicable) has been applied. Medications: Current Medications Medications (Trade) Dose Ordered Sig/Marjorie Route PRN Reason Start Time Stop Time Status Last Admin Dose Admin Sodium Chloride 1,000 ml @ 999 mls/hr 1X ONCE IV 07/31/21 17:30 07/31/21 18:30 DC 07/31/21 17:30 Ondansetron HCl (Zofran) 4 mg 1X ONCE IVP 07/31/21 18:30 07/31/21 18:31 DC 07/31/21 20:04 Ondansetron HCl (Zofran) 4 mg PRN Q8HRS PRN IVP NAUSEA/VOMITING 07/31/21 19:00 08/01/21 07:42 DC 08/01/21 06:12 Sodium Chloride 1,000 ml @ 1,000 mls/hr Q1H IV 07/31/21 19:00 07/31/21 19:59 DC 07/31/21 19:40 Insulin Human Regular 100 unit/ Sodium Chloride 101 ml @ 0 mls/hr CONT PRN PRN IV PER PROTOCOL 07/31/21 19:00 08/01/21 10:49 Famotidine (Pepcid Vial) 20 mg BID IVP 08/01/21 09:00 08/01/21 08:49 Info (Icu Electrolyte Protocol) 1 ea DAILY MC 08/01/21 09:00 08/01/21 09:00 Acetaminophen (Tylenol) 650 mg PRN Q6HRS PRN PO MILD PAIN / TEMP > 100.3'F 07/31/21 21:45 07/31/21 22:22 Ceftriaxone Sodium (Rocephin) 1 gm Q24H IVP 07/31/21 23:00 08/03/21 22:59 07/31/21 23:37 Potassium Phosphate 13.3 mmol/Sodium Chloride 104.4333 ml @ 52.217 m... Q2H IV 07/31/21 23:45 08/01/21 05:44 DC 08/01/21 03:56 Magnesium Sulfate/ Dextrose 100 ml @ 100 mls/hr DAILY IV 08/01/21 00:00 08/03/21 00:00 08/01/21 08:54 Sodium Chloride 1,000 ml @ 250 mls/hr 1X ONCE IV 08/01/21 04:15 08/01/21 08:14 DC 08/01/21 04:59 Potassium Phosphate 13.3 mmol/Sodium Chloride 104.4333 ml @ 52.217 m... Q2H IV 08/01/21 05:00 08/01/21 10:59 DC 08/01/21 10:35 Dextrose/Sodium Chloride 1,000 ml @ 250 mls/hr Q4H IV 08/01/21 05:15 08/01/21 14:19 Potassium Phosphate 15 mmol/ Sodium Chloride 105 ml @ 52.5 mls/hr Q2H IV 08/01/21 12:00 08/01/21 15:59 08/01/21 14:06 Justifications for Admission Other Justification LAN COATES MD Aug 01, 2021 14:38
--- NOTE | 2021-08-01 15:10 | NUR ---
Called Dr. Ordaz, updated of patient's present status, asked if we need to keep the central line and femoral line. He said we can take it off. Addendum: 08/01/21 at 1525 by ALEXYS ELY RN RN Please disregard this notes, this is wrong entry. Meant to be for different patient. Patient has no dental aide consult.
[2021-08-01] MEDS ORDERED: EPINEPHrine SYRINGE 1 MG/10 ML SYRINGE. ONE (17:00)
[2021-08-01] MEDS ORDERED: DEXTROSE 50% 25 GM / 50ML DISP.SYRIN. IV ONE (17:00)
[2021-08-01] MEDS ORDERED: ATROPINE 1 MG/10 ML DISP.SYRINGE. ONE (17:00)
[2021-08-01] MEDS ORDERED: SODIUM BICARB ADULT 8.4% 50 MEQ/50 ML DISP.SYRIN. ONE (17:00)
[2021-08-01] MEDS ORDERED: CALCIUM CHLORIDE 1,000 MG/10 ML DISP.SYRIN ONE (17:00)
--- NOTE | 2021-08-01 17:40 | EKG ---
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
[2021-08-01 18:14] LABS: CALCIUM 7.1 mg/dL (8.5-10.1); CREATININE 2.3 mg/dL (0.6-1.0); MAGNESIUM 1.9 mg/dL (1.8-2.4); PHOSPHORUS 3.3 mg/dL (2.6-4.7)
[2021-08-01] MEDS ORDERED: FLUO40CA2 PO (18:52)
[2021-08-01] MEDS ORDERED: ALBU2.5V8 IH (18:52)
[2021-08-01] MEDS ORDERED: AMLO-187 PO (18:52)
[2021-08-01] MEDS ORDERED: ALBU2.5V5 NEB (18:52)
[2021-08-01] MEDS ORDERED: EMPA10TA3 PO (18:52)
[2021-08-01] MEDS ORDERED: DAPA5TAB PO (18:52)
--- NOTE | 2021-08-01 19:10 | NUR ---
Updated Dr. Delgadillo of patient's present vitals and lab results, GAP still not closed. Said he's gonna put order. Insulin drip titrated accordingly whole [id number] as per glucose stabilizer.
[2021-08-01] MEDS ORDERED: METF10007 PO (19:20)
[2021-08-01] MEDS ORDERED: LURA20TA PO (19:20)
[2021-08-01] MEDS ORDERED: LISI-130 PO (19:20)
[2021-08-01] MEDS ORDERED: MONT10TA49 PO (19:20)
[2021-08-01] MEDS ORDERED: HYDR25TA10 PO (19:20)
[2021-08-01] MEDS ORDERED: SENN1TAB99 PO (19:23)
[2021-08-01] MEDS ORDERED: FLUT1DIS IH (19:23)
[2021-08-01] MEDS ORDERED: INSU100I13 SQ (19:23)
[2021-08-01] MEDS ORDERED: SITA100T PO (19:23)
[2021-08-01] MEDS: cefTRIAXone IV Push 1 GM VIAL. IVP SCH (22:09)
[2021-08-01] MEDS: ACETAMINOPHEN 325 MG TABLET. PO PRN (23:34)
[2021-08-02] VITALS (20 sets, daily range): BP systolic 60–147; BP diastolic 42–93
[2021-08-02 00:08] LABS: BASO % 0 % (0-3); EOS # 0.3 x10^3/uL (0.0-0.7); EOS % 2 % (0-3); HEMATOCRIT 27.8 % (36.0-47.0); HEMOGLOBIN 8.8 g/dL (12.0-15.5); LYMPH # 0.6 x10^3/uL (1.0-4.8); LYMPH % 5 % (24-48); MEAN CORPUSCULAR HEMOGLOBIN 27 pg (25-35); MEAN CORPUSCULAR HGB CONC 32 g/dL (31-37); MEAN CORPUSCULAR VOLUME 85 fL (79-100); MONO # 0.7 x10^3/uL (0.0-1.1); MONO % 6 % (0-9); NEUT # 11.3 x10^3/uL (1.8-7.7); NEUT % 87 % (31-73); PLATELET COUNT 99 x10^3/uL (140-400); RED BLOOD COUNT 3.27 x10^6/uL (3.50-5.40); RED CELL DISTRIBUTION WIDTH 15.3 % (11.5-14.5)
[2021-08-02 00:12] LABS: BASE EXCESS ABG -18 mmol/L (-3-3); HCO3 ABG 7 mmol/L (21-28); PO2 ABG 103 mmHg (85-108); SAT O2 ABG 97 % (92-99)
[2021-08-02 00:14] LABS: FIO2 ABG 21; PCO2 ABG 15 mmHg (35-46)
[2021-08-02 00:15] LABS: CALCIUM 6.4 mg/dL (8.5-10.1); CREATININE 2.4 mg/dL (0.6-1.0); GFR 29.5; MAGNESIUM 1.6 mg/dL (1.8-2.4); PHOSPHORUS 5.4 mg/dL (2.6-4.7); POTASSIUM 3.8 mmol/L (3.5-5.1)
[2021-08-02] MEDS ORDERED: ACETAMINOPHEN 650 MG SUPP.RECT. PR PRN (00:15)
[2021-08-02] MEDS ORDERED: SODIUM BICARB ADULT 8.4% 50 MEQ/50 ML DISP.SYRIN. IV ONE ×2 (00:15→06:30)
[2021-08-02] MEDS ORDERED: VANCOMYCIN 1.75 GM in IV NORMAL SALINE 500ML BAG 500 ML IV ONE (00:15)
--- NOTE | 2021-08-02 00:15 | NUR ---
Dr Lane notified of patients change in condition. Pt remains tachycardic, tachypneic, hypotensive and now febrile. Pt remains on DKA protocol. Blood sugars are now rising again. Order from Dr Lane to hold D5NS for a few hours and cut back insulin to half at 14units per hr. Addendum: 08/02/21 at 0155 by SHAILA MILLAN RN RN Amended: Links added.
--- NOTE | 2021-08-02 00:24 | EKG ---
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
[2021-08-02] MEDS ORDERED: NOREPINEPHRINE VIAL 8 MG in IV DEXTROSE 5% 250 ML IV PRN (01:15)
[2021-08-02] MEDS: POTASSIUM CHLORIDE 10MEQ 100 ML IV SCH ×4 (01:36→06:36)
[2021-08-02 02:09] LABS: HEMOGLOBIN A1C 9.5 % (4.8-5.6)
[2021-08-02] MEDS: INSULIN REGULAR VIAL 100 UNIT in IV NORMAL SALINE 100ML 100 ML IV PRN ×6 (02:37→20:18)
[2021-08-02] MEDS ORDERED: PROPOFOL 100 ML IV PRN (03:30)
[2021-08-02] MEDS ORDERED: MIDAZOLAM 100mg/100ml NS BAG 100 ML IV PRN ×2 (03:30)
[2021-08-02] MEDS ORDERED: DEXMEDETOMIDINE 400 MCG in IV NORMAL SALINE 100ML 96 ML IV PRN (03:30)
[2021-08-02] MEDS ORDERED: ATROPINE 0.5 MG/5 ML DISP.SYRINGE. IV PRN (03:30)
[2021-08-02] MEDS ORDERED: IV NORMAL SALINE 500ML BAG 500 ML IV PRN (03:30)
[2021-08-02 04:09] LABS: ALBUMIN 1.3 g/dL (3.4-5.0); ALBUMIN/GLOBULIN RATIO 0.3 (1.0-1.7); CALCIUM 6.3 mg/dL (8.5-10.1); CREATININE 2.8 mg/dL (0.6-1.0); GFR 24.7; MAGNESIUM 1.9 mg/dL (1.8-2.4); PHOSPHORUS 7.2 mg/dL (2.6-4.7); POTASSIUM 4.2 mmol/L (3.5-5.1); TOTAL PROTEIN 5.2 g/dL (6.4-8.2)
[2021-08-02] MEDS: IV NORMAL SALINE 1000ML BAG 1,000 ML IV SCH ×2 (04:30→07:48)
[2021-08-02] MEDS ORDERED: SODIUM BICARBONATE IV ONE (04:30)
[2021-08-02] MEDS ORDERED: RINGERS LACTATED IV ONE (04:30)
[2021-08-02] MEDS: IV DEXTROSE 5% - 0.9 % NACL 1,000 ML IV SCH ×2 (05:15→06:00)
--- NOTE | 2021-08-02 05:26 | RAD ---
EXAM: XR CHEST 1V 08/02/2021 3:24 AM CLINICAL INDICATION: Intubation, NG tube placement. COMPARISON: Chest radiograph 07/31/2021 TECHNIQUE: AP supine view of the chest FINDINGS: A new endotracheal tube terminates approximately 5 cm above the fermin. Nasogastric tube t erminates in the gastric fundus. There are defibrillator pads over the chest. The heart is mildly enl arged. Lungs are adequately expanded. No focal opacity, pleural effusion or pneumothorax. IMPRESSION: Appropriate position of endotracheal and nasogastric tubes. Cardiomegaly. Electronically signed by: Kathrin Soto MD (08/02/2021 5:24 AM) [facility]
--- NOTE | 2021-08-02 05:56 | RAD ---
EXAM: XR CHEST 1V 08/02/2021 4:41 AM CLINICAL INDICATION: Central line placement COMPARISON: Chest radiograph 08/02/2021 TECHNIQUE: AP upright view of the chest FINDINGS: The new right internal jugular central venous catheter tip projects over the superior cavo atrial junction. Nasogastric tube terminates in the gastric fundus and endotracheal tube terminates a pproximately 5 cm above the fermin. The heart is mildly enlarged. No pleural effusion or pneumothorax . IMPRESSION: New right IJ central venous catheter with tip projecting over the superior cavoatrial ju nction Electronically signed by: Kathrin Soto MD (08/02/2021 5:53 AM) [facility]
--- NOTE | 2021-08-02 05:59 | PDOC ---
Provider Note Date of Service: DATE: 08/02/21 TIME: 05:55 Provider Note I was initially paged to bedside to the ICU because the patient had gone into cardiac arrest. On arrival after being given epinephrine she immediately regained pulses. During the code she had been given bicarb. I had initial difficulty intubating the patient because her trachea was very small. It took 2 attempts to successfully intubate the patient. I had to use a 6.5 ET tube. I then left the patient with orders pending to return to the ER. Approximately 30 minutes to an hour later I was repaged to bedside as the patient had gone into cardiac arrest again. This time I was informed that the new CO2 is very low. Also the blood pressure was very difficult to read and therefore I suspected her to need significant blood pressure support. I then placed a right internal jugular central line. At this point I asked for x-ray to confirm placement followed by multiple fluid boluses to be given through the IV. Justifications for Admission Other Justification Intubation Procedure Intubation Procedure Intub Indication: Respiratory failure Consent: Unable to give consent due to emergent nature. Medications Used: see nursing note Procedure: The patient was placed in the appropriate position. Intubation was performed colonoscope with a 6.5 endotracheal tube. I had 1 attempt prior with a 7.5 however it was too big and could not pass down her trachea. ET tube was secured. Initial confirmation of placement included bilateral breath sounds, tube fogging, adequate chest rise, adequate pulse oximetry reading. A chest x- ray to verify correct placement of the tube showed appropriate tube position. The patient tolerated the procedure well. Complications: none. 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
[2021-08-02] MEDS ORDERED: PHENYLEPHRINE INJ 50 MG in IV NORMAL SALINE 250ML 250 ML IV PRN (06:00)
[2021-08-02] MEDS: PHENYLEPHRINE INJ 100 MG in IV NS 250 ML IV PRN ×2 (06:04→14:13)
[2021-08-02 06:06] LABS: BASE EXCESS ABG -25 mmol/L (-3-3); HCO3 ABG 6 mmol/L (21-28); PCO2 ABG 29 mmHg (35-46); PO2 ABG 457 mmHg (85-108); SAT O2 ABG 100 % (92-99)
[2021-08-02 06:11] LABS: FIO2 ABG 100
--- NOTE | 2021-08-02 06:22 | EKG ---
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
[2021-08-02] MEDS ORDERED: ALBUMIN HUMAN 25% 100 ML IV ONE (06:30)
[2021-08-02] MEDS: VASOPRESSIN - VASOSTRICT 20 UNIT in IV NORMAL SALINE 100ML 100 ML IV PRN ×3 (06:40→20:13)
[2021-08-02] MEDS ORDERED: VECURONIUM BOLUS 10 MG VIAL. IV ONE ×3 (07:01→07:45)
--- NOTE | 2021-08-02 07:11 | CONS ---
DATE OF CONSULTATION: 08/02/2021 REASON FOR CONSULTATION: I was asked to see this 26-year-old lady for acute respiratory failure, status post cardiopulmonary arrest. HISTORY OF PRESENT ILLNESS: The patient is currently on the ventilator and is sedated, is not able to give me any information. All of the information was obtained from chart, nursing staff and RT. She does have diabetes, noncompliant to her medication, presented to Emergency Room for vomiting. Apparently, she had her COVID vaccine booster last week. She was found to be in DKA, treatment started per protocol. She coded earlier this morning. Apparently, it was respiratory arrest, PEA, ventricular fibrillation when she was shocked. She is now on the ventilator. She is on 3 pressors, José-Synephrine, Levophed and vasopressin. She is receiving IV fluids. She is on insulin drip. Her last ABG after intubation, pH 6.9, pCO2 of 29, pO2 of 457 on assist control rate of 18, tidal volume 450, PEEP of 5, FiO2 100%. PAST MEDICAL HISTORY: Asthma, diabetes mellitus. ALLERGIES: POTASSIUM CHLORIDE. MEDICATIONS: Currently, she is on Pepcid, Levophed, José-Synephrine, vasopressin, Versed, Rocephin. SOCIAL HISTORY: Nonsmoker per chart. FAMILY HISTORY: Hypertension per chart. REVIEW OF SYSTEMS: Unable to obtain, the patient is intubated and sedated. PHYSICAL EXAMINATION: GENERAL: This is a morbidly obese lady. Her BMI is 61.2. She has short extremities. VITAL SIGNS: Her O2 saturation on 60% FiO2 is 100%, respiratory rate 38, heart rate 140, temperature 100.1, blood pressure 75/58 and max temperature was 101.9. HEENT: Normocephalic, atraumatic. Pupils equal, round, sluggish to light. She is orally intubated. Nose is clear. NECK: Very and thick. No lymphadenopathy or thyromegaly. CARDIOVASCULAR: Tachycardic. CHEST INSPECTION: She appears tachypneic. LUNGS: There are bibasilar crackles, dullness at the bases. ABDOMEN: Soft and obese. There is no mass. EXTREMITIES: Short. There is no edema. LYMPHATICS: There is no lymphadenopathy. NEUROLOGIC: She is sedated on the ventilator. LABORATORY DATA: I reviewed the following lab data: Chest x-ray shows cardiomegaly, small lung volumes. ET tube is about 5 cm above fermin. Right IJ is in good position. OG is in good position. ABG as mentioned as above. Sodium 141, potassium 4.2, chloride 110, CO2 of 7, BUN 27, creatinine 2.8. Hemoglobin A1c 9.5. Lactic acid 6, repeat is 4.8, AST 214, ALT 71, alk phos 122, total protein 5.2, albumin 1.3, phosphorus 7.2, magnesium 1.9. WBC 13, hemoglobin 8.8, platelets 150. Influenza A and B and COVID negative. Urine has large leukocyte esterase, large wbc. IMPRESSION: 1. Acute respiratory failure, multifactorial in etiology including cardiopulmonary arrest, septic shock, diabetic ketoacidosis, acute kidney injury, untreated obstructive sleep apnea-hypopnea syndrome. 2. Status post cardiopulmonary arrest, multifactorial in etiology. 3. Acute kidney injury. 4. Diabetic ketoacidosis. 5. Severe metabolic acidosis secondary to diabetic ketoacidosis and acute kidney injury. 6. Asthma. 7. Untreated obstructive sleep apnea-hypopnea syndrome. 8. Poorly controlled diabetes mellitus. 9. Electrolyte abnormality. 10. Morbid obesity. 11. septic shock suspect urosepsis PLAN AND RECOMMENDATIONS: 1. Titrate FiO2 to keep O2 saturation 94%. 2. ABG reviewed. Increase respiratory rate to 26, add 1 amp of bicarb. We will consult Nephrology. She has severe metabolic acidosis, not responding to treatment. She would require dialysis. Discussed with RN. 3. We will give 1 amp of bicarb. 4. IV bolus. She had 1 liter of normal saline. We will have another liter. If she continues to have low blood pressure, we will give LR 500 mL. 5. Continue antibiotic. 6. Continue Pepcid for stress ulcer prophylaxis. 7, SCDs for DVT prophylaxis. Hold on Lovenox as she has anemia. 8. Continue pressors to keep MAP more than 60. The findings and recommendations were discussed with RN and RT. ET tube also advanced 1 cm. The patient is critically ill. This critical care time 35 minutes without overlap. Thank you very much for allowing me to participate in care of this very nice, but critically ill patient. DEMARCUS/PORTIA DR: [place] TID: [id number] MTDD
[2021-08-02 07:51] LABS: BASE EXCESS ABG -25 mmol/L (-3-3); CORRECTED PCO2 ABG 32 mmHg; CORRECTED PH ABG 6.88; CORRECTED PO2 ABG 304 mmHg; HCO3 ABG 6 mmol/L (21-28); PCO2 ABG 30 mmHg (35-46); PO2 ABG 295 mmHg (85-108); SAT O2 ABG 99 % (92-99)
[2021-08-02 07:56] LABS: FIO2 ABG 100% AC 26 450 10
--- NOTE | 2021-08-02 08:00 | NUR ---
late entry, at 030 pt became bradycardic and went into PEA. Pt code blue for approx 5 minutes. Pt acheived ROSC at 0308 with heart rhythm in SVT. Pt in SVT as post code efforts continued until pt went back into PEA at 0350. Pt coded for approx 8 minutes. Pt them came back again in SVT rhythym. Family and Physician notified of pts condition. Orders received to continue all efforts to resuscitate the pt but pt is not responding. unresponsive to all measures taken from all vasopressers and bicarb. Pt is not compliant with the ventilator. Vecuronium given x1. Pt in grave condition.
--- NOTE | 2021-08-02 08:08 | PHYS DOC ---
CODE REPORT CODE REPORT At 735 this morning I was called over to the ICU from the ER department for CODE BLUE on this patient. Patient was given 2 epis and 1 amp of bicarb and had achieved ROSC prior to my arrival. Labs were reviewed patient had a pH of 6.9 as well as a bicarb of 6. I have been able to get in contact with the patient's Sister Britany as well as her other sister on the phone and discussed that her lab findings and her condition currently are not compatible with life They will be coming to visit the patient in order to discuss further plan with the primary care team. MATT FERNANDEZ DO Aug 02, 2021 08:08
--- NOTE | 2021-08-02 08:28 | NUR ---
Patient unstable, requiring rapid titration of levophed d/t sustained MAP <65 beginning at 0308. Starting rate at 0.03 mcg/kg/min. levophed currently infusing at 1 mcg/kg/min; the max rate during this time was 1mcg/kg/min of medication administered during charting block which ended at 0420 . (Max block time 4 hours.) Pt in SVT rhythm, HR 202, Spo2 98. Levophed at max dose at 0420 then added vassopressin per protocol. Pt still not responding to other 2 pressers, added Phenylepherine at 0.5. mcg/kg/min. Pt stabilized at blood pressure at 2.53mcg/kg/min at 0740. Addendum: 08/02/21 at 0840 by SHAILA MILLAN RN RN Amended: Links added.
[2021-08-02 08:51] LABS: CREATININE 2.9 mg/dL (0.6-1.0); GFR 23.7; MAGNESIUM 1.9 mg/dL (1.8-2.4); PHOSPHORUS 6.6 mg/dL (2.6-4.7); POTASSIUM 4.6 mmol/L (3.5-5.1)
[2021-08-02 08:56] LABS: CALCIUM 5.2 mg/dL (8.5-10.1)
[2021-08-02] MEDS: ELECTROLYTE (ICU) PROTOCOL. MC SCH (09:00)
[2021-08-02 09:28] LABS: BASO % 0 % (0-3); EOS # 2.3 x10^3/uL (0.0-0.7); EOS % 20 % (0-3); HEMATOCRIT 22.9 % (36.0-47.0); LYMPH # 0.8 x10^3/uL (1.0-4.8); LYMPH % 7 % (24-48); MEAN CORPUSCULAR HEMOGLOBIN 27 pg (25-35); MEAN CORPUSCULAR HGB CONC 30 g/dL (31-37); MEAN CORPUSCULAR VOLUME 88 fL (79-100); MONO # 0.2 x10^3/uL (0.0-1.1); MONO % 2 % (0-9); NEUT # 8.4 x10^3/uL (1.8-7.7); NEUT % 71 % (31-73); PLATELET COUNT 85 x10^3/uL (140-400); WHITE BLOOD COUNT 11.7 x10^3/uL (4.0-11.0)
[2021-08-02 09:29] LABS: HEMOGLOBIN 6.9 g/dL (12.0-15.5)
[2021-08-02] MEDS: MAGNESIUM SULFATE 1GM 100 ML IV SCH (09:29)
--- NOTE | 2021-08-02 09:58 | NUR ---
0715h- Dr. Moss updated thru phone of patient's status, anuric from film processing shift supervisor. Told to do bladder scan and patient for HD cath placement if without urine and to update her. 0718h- coded patient, PEA noted, CPR started, NAHCO3 amp given IV , epinephrine IV push given 07h- SVT 165bpm (+) femoral and carotid pulse palpated. BP: 160/107 via arterial line. (-) corneal reflex, bilateral pupils non reactive, no gag and cough 0726h- SVT 260 defibrillated patient at 150 ED doctor doctor Francis at bedside from half of code to debfirillation. He updated relative of patient's status, still full code. He said they will come and see patient. Bladder scan at 0740h- 83ml Calcium critical informed to Dr. Moss c/o Sanjeev CHIRINOS 0900h Consent for HD cath placement via phone with Sanjeev CHIRINOS done 09h Hgb 6.9, informed to Dr. Perrin at 1000h, to give 1 u PRBC\ Titrated insulin drip accordingly and changed IVF accordingly as per BMP Mg and Ca. Addendum: 08/02/21 at 1013 by ALEXYS ELY RN RN addendum: vecuronium order entered twice, administered the order just once
[2021-08-02] MEDS ORDERED: IV 1/2 NORMAL SALINE 1,000 ML IV SCH (10:00)
[2021-08-02] MEDS ORDERED: LIDOCAINE WITH 8.4% SOD BICARB 3 ML DISP.SYRIN. INJ ONE (10:15)
[2021-08-02] MEDS ORDERED: LIDOCAINE WITH 8.4% SOD BICARB 3 ML DISP.SYRIN. ONE (10:16)
--- NOTE | 2021-08-02 10:22 | PDOC ---
[employer] PROGRESS NOTE Date of Service DOS: DATE: 08/02/21 TIME: 10:16 Chief Complaint Chief Complaint Sepsis DKA SEVERO Hypertensive urgency Lactic acidosis Severe protein malnutrition UTI Gram-negative nate bacteremia History of Present Illness History of Present Illness 08/01: Patient seen in ICU with family at bedside. Sister reports that patient is noncompliant with insulin. Urinalysis consistent with acute cystitis. Urine culture and sensitivity pending; continue Rocephin. Patient remains on insulin infusion. Discussed with patient sister, if she is noncompliant with insulin then will discharge she will need an additional oral hypoglycemic agent. Hemoglobin A1c pending; patient is already on Jardiance and Metformin. Critical care time 30 minutes spent reviewing charts, reviewing labs, reviewing imaging, discussion with family, discussion with RN. 08/02: Patient's condition worsened overnight. Early this morning she became bradycardic and went to PEA. CODE BLUE was called and patient was coded for approximately 5 minutes. ROSC was achieved heart rhythm in SVT. Febrile, tachycardic. She was then intubated; consults to pulmonology and nephrology. PEEP 10, FiO2 100%. Bicarb given. She is to receive CRRT today in ICU. Discussed with RN, amiodarone 150 mg infusion if patient remains in SVT; place consult to cardiology. Extensive conversation with family at bedside about poor prognosis. Will order bilateral venous ultrasounds to evaluate PE as etiology of PEA. Lab reported to RN that patient had gram-negative rods in 1 of 4 bottles; patient already on Rocephin, will wait until final blood cultures results before consulting ID. Critical care time 30 minutes spent reviewing charts, reviewing labs, reviewing imaging, discussion with family, and discussion with RN. Vitals/I&O Vitals/I&O: Vital Signs Date Time Temp Pulse Resp B/P (MAP) Pulse Ox O2 Delivery O2 Flow Rate FiO2 08/02/21 09:35 100 Ventilator 08/02/21 06:57 36 08/02/21 06:00 158 64/44 (51) 08/02/21 01:00 100.1 100.1 I & O 08/01/21 08/01/21 08/02/21 15:00 23:00 07:00 Intake Total 1100 ml 0 ml Output Total 555 ml 685 ml 140 ml Balance -555 ml 415 ml -140 ml Physical Exam General: mild distress, Other (Intubated) Heart: Other (Tachycardic) Lungs: Clear Abdomen: Soft, No tenderness Extremities: No clubbing, No cyanosis Skin: No rashes, No breakdown Labs Labs: Laboratory Tests Test 08/01/21 11:00 08/01/21 11:10 08/01/21 12:02 08/01/21 12:56 Sodium Level 133 mmol/L (136-145) Potassium Level 3.6 mmol/L (3.5-5.1) Chloride Level 103 mmol/L (98-107) Carbon Dioxide Level 13 mmol/L (21-32) Anion Gap 17 (6-14) Blood Urea Nitrogen 24 mg/dL (7-20) Creatinine 2.2 mg/dL (0.6-1.0) Estimated GFR (Cockcroft-Gault) 32.6 Glucose Level 173 mg/dL (70-99) Calcium Level 7.3 mg/dL (8.5-10.1) Phosphorus Level 2.8 mg/dL (2.6-4.7) Magnesium Level 2.0 mg/dL (1.8-2.4) Glucose (Fingerstick) 155 mg/dL (70-99) 164 mg/dL (70-99) 151 mg/dL (70-99) Test 08/01/21 14:01 08/01/21 15:07 08/01/21 16:06 08/01/21 16:56 Glucose (Fingerstick) 182 mg/dL (70-99) 150 mg/dL (70-99) 148 mg/dL (70-99) 151 mg/dL (70-99) Test 08/01/21 17:30 08/01/21 18:00 08/01/21 19:03 08/01/21 20:09 Sodium Level 138 mmol/L (136-145) Potassium Level 3.0 mmol/L (3.5-5.1) Chloride Level 106 mmol/L (98-107) Carbon Dioxide Level 12 mmol/L (21-32) Anion Gap 20 (6-14) Blood Urea Nitrogen 23 mg/dL (7-20) Creatinine 2.3 mg/dL (0.6-1.0) Estimated GFR (Cockcroft-Gault) 31.0 Glucose Level 151 mg/dL (70-99) Calcium Level 7.1 mg/dL (8.5-10.1) Phosphorus Level 3.3 mg/dL (2.6-4.7) Magnesium Level 1.9 mg/dL (1.8-2.4) Glucose (Fingerstick) 138 mg/dL (70-99) 137 mg/dL (70-99) 146 mg/dL (70-99) Test 08/01/21 22:16 08/01/21 23:16 08/01/21 23:30 08/02/21 00:08 Glucose (Fingerstick) 180 mg/dL (70-99) 240 mg/dL (70-99) White Blood Count 13.0 x10^3/uL (4.0-11.0) Red Blood Count 3.27 x10^6/uL (3.50-5.40) Hemoglobin 8.8 g/dL (12.0-15.5) Hematocrit 27.8 % (36.0-47.0) Mean Corpuscular Volume 85 fL (79-100) Mean Corpuscular Hemoglobin 27 pg (25-35) Mean Corpuscular Hemoglobin Concent 32 g/dL (31-37) Red Cell Distribution Width 15.3 % (11.5-14.5) Platelet Count 99 x10^3/uL (140-400) Neutrophils (%) (Auto) 87 % (31-73) Lymphocytes (%) (Auto) 5 % (24-48) Monocytes (%) (Auto) 6 % (0-9) Eosinophils (%) (Auto) 2 % (0-3) Basophils (%) (Auto) 0 % (0-3) Neutrophils # (Auto) 11.3 x10^3/uL (1.8-7.7) Lymphocytes # (Auto) 0.6 x10^3/uL (1.0-4.8) Monocytes # (Auto) 0.7 x10^3/uL (0.0-1.1) Eosinophils # (Auto) 0.3 x10^3/uL (0.0-0.7) Basophils # (Auto) 0.0 x10^3/uL (0.0-0.2) Sodium Level 136 mmol/L (136-145) Potassium Level 3.8 mmol/L (3.5-5.1) Chloride Level 107 mmol/L (98-107) Carbon Dioxide Level 9 mmol/L (21-32) Anion Gap 20 (6-14) Blood Urea Nitrogen 24 mg/dL (7-20) Creatinine 2.4 mg/dL (0.6-1.0) Estimated GFR (Cockcroft-Gault) 29.5 Glucose Level 243 mg/dL (70-99) Calcium Level 6.4 mg/dL (8.5-10.1) Phosphorus Level 5.4 mg/dL (2.6-4.7) Magnesium Level 1.6 mg/dL (1.8-2.4) O2 Saturation 97 % (92-99) Arterial Blood pH 7.29 (7.35-7.45) Arterial Blood pCO2 at Patient Temp 15 mmHg (35-46) Arterial Blood pO2 at Patient Temp 103 mmHg (85-108) Arterial Blood HCO3 7 mmol/L (21-28) Arterial Blood Base Excess -18 mmol/L (-3-3) FiO2 21 Test 08/02/21 00:26 08/02/21 01:32 08/02/21 02:41 08/02/21 03:20 Glucose (Fingerstick) 271 mg/dL (70-99) 248 mg/dL (70-99) 248 mg/dL (70-99) Sodium Level 141 mmol/L (136-145) Potassium Level 4.2 mmol/L (3.5-5.1) Chloride Level 110 mmol/L (98-107) Carbon Dioxide Level 7 mmol/L (21-32) Anion Gap 24 (6-14) Blood Urea Nitrogen 27 mg/dL (7-20) Creatinine 2.8 mg/dL (0.6-1.0) Estimated GFR (Cockcroft-Gault) 24.7 BUN/Creatinine Ratio 10 (6-20) Glucose Level 290 mg/dL (70-99) Calcium Level 6.3 mg/dL (8.5-10.1) Phosphorus Level 7.2 mg/dL (2.6-4.7) Magnesium Level 1.9 mg/dL (1.8-2.4) Total Bilirubin 1.0 mg/dL (0.2-1.0) Aspartate Amino Transf (AST/SGOT) 214 U/L (15-37) Alanine Aminotransferase (ALT/SGPT) 71 U/L (14-59) Alkaline Phosphatase 122 U/L (46-116) Total Protein 5.2 g/dL (6.4-8.2) Albumin 1.3 g/dL (3.4-5.0) Albumin/Globulin Ratio 0.3 (1.0-1.7) Test 08/02/21 03:21 08/02/21 03:50 08/02/21 05:50 08/02/21 05:54 Glucose (Fingerstick) 231 mg/dL (70-99) 244 mg/dL (70-99) 273 mg/dL (70-99) O2 Saturation 100 % (92-99) Arterial Blood pH 6.91 (7.35-7.45) Arterial Blood pCO2 at Patient Temp 29 mmHg (35-46) Arterial Blood pO2 at Patient Temp 457 mmHg (85-108) Arterial Blood HCO3 6 mmol/L (21-28) Arterial Blood Base Excess -25 mmol/L (-3-3) FiO2 100 Test 08/02/21 07:00 08/02/21 07:45 08/02/21 08:05 08/02/21 08:10 Glucose (Fingerstick) 259 mg/dL (70-99) 303 mg/dL (70-99) O2 Saturation 99 % (92-99) Arterial Blood pH 6.90 (7.35-7.45) Arterial Blood pH (Temp corrected) 6.88 Arterial Blood pCO2 at Patient Temp 30 mmHg (35-46) Arterial Blood pCO2 (Temp correct) 32 mmHg Arterial Blood pO2 at Patient Temp 295 mmHg (85-108) Arterial Blood pO2 (Temp corrected) 304 mmHg Arterial Blood HCO3 6 mmol/L (21-28) Arterial Blood Base Excess -25 mmol/L (-3-3) FiO2 100% ac 26 450 10 Sodium Level 143 mmol/L (136-145) Potassium Level 4.6 mmol/L (3.5-5.1) Chloride Level 113 mmol/L (98-107) Carbon Dioxide Level 8 mmol/L (21-32) Anion Gap 22 (6-14) Blood Urea Nitrogen 23 mg/dL (7-20) Creatinine 2.9 mg/dL (0.6-1.0) Estimated GFR (Cockcroft-Gault) 23.7 Glucose Level 310 mg/dL (70-99) Calcium Level 5.2 mg/dL (8.5-10.1) Phosphorus Level 6.6 mg/dL (2.6-4.7) Magnesium Level 1.9 mg/dL (1.8-2.4) Test 08/02/21 08:55 08/02/21 09:17 08/02/21 09:52 White Blood Count 11.7 x10^3/uL (4.0-11.0) Red Blood Count 2.60 x10^6/uL (3.50-5.40) Hemoglobin 6.9 g/dL (12.0-15.5) Hematocrit 22.9 % (36.0-47.0) Mean Corpuscular Volume 88 fL (79-100) Mean Corpuscular Hemoglobin 27 pg (25-35) Mean Corpuscular Hemoglobin Concent 30 g/dL (31-37) Red Cell Distribution Width 16.0 % (11.5-14.5) Platelet Count 85 x10^3/uL (140-400) Neutrophils (%) (Auto) 71 % (31-73) Lymphocytes (%) (Auto) 7 % (24-48) Monocytes (%) (Auto) 2 % (0-9) Eosinophils (%) (Auto) 20 % (0-3) Basophils (%) (Auto) 0 % (0-3) Neutrophils # (Auto) 8.4 x10^3/uL (1.8-7.7) Lymphocytes # (Auto) 0.8 x10^3/uL (1.0-4.8) Monocytes # (Auto) 0.2 x10^3/uL (0.0-1.1) Eosinophils # (Auto) 2.3 x10^3/uL (0.0-0.7) Basophils # (Auto) 0.0 x10^3/uL (0.0-0.2) Glucose (Fingerstick) 282 mg/dL (70-99) 252 mg/dL (70-99) Assessment and Plan Assessmemt and Plan Problems Medical Problems: (1) DKA (diabetic ketoacidosis) Status: Acute Comment Review of Relevant I have reviewed the following items maribel (where applicable) has been applied. Medications: Current Medications Medications (Trade) Dose Ordered Sig/Marjorie Route PRN Reason Start Time Stop Time Status Last Admin Dose Admin Potassium Phosphate 15 mmol/ Sodium Chloride 105 ml @ 52.5 mls/hr Q2H IV 08/01/21 12:00 08/01/21 15:59 DC 08/01/21 14:06 Potassium Phosphate 15 mmol/ Sodium Chloride 105 ml @ 52.5 mls/hr Q2H IV 08/01/21 20:00 08/01/21 23:59 DC 08/01/21 21:58 Sodium Chloride 1,000 ml @ 1,000 mls/hr 1X ONCE IV 08/01/21 19:30 08/01/21 20:29 DC 08/01/21 20:01 Vancomycin HCl 1.75 gm/Sodium Chloride 500 ml @ 250 mls/hr 1X ONCE IV 08/02/21 00:15 08/02/21 02:14 DC 08/02/21 01:36 Sodium Bicarbonate (Sodium Bicarb Adult 8.4% Syr) 50 meq 1X ONCE IV 08/02/21 00:15 08/02/21 00:16 DC 08/02/21 00:16 Acetaminophen (Tylenol Supp) 650 mg PRN Q6HRS PRN [place] MILD PAIN / TEMP > 100.3'F 08/02/21 00:15 08/02/21 00:18 Potassium Chloride/Water 100 ml @ 100 mls/hr Q1H IV 08/02/21 01:30 08/02/21 05:29 DC 08/02/21 06:36 Norepinephrine Bitartrate 8 mg/ Dextrose 258 ml @ 5.062 mls/ hr CONT PRN IV PER PROTOCOL 08/02/21 01:15 08/02/21 06:59 DC 08/02/21 06:03 Fentanyl Citrate 30 ml @ 2.5 mls/hr CONT PRN IV SEE PROTOCOL 08/02/21 03:30 08/02/21 06:27 Midazolam HCl 100 ml @ 1 mls/hr CONT PRN IV SEE PROTOCOL 08/02/21 03:30 08/02/21 06:40 Vasopressin 20 unit/Sodium Chloride 101 ml @ 9 mls/hr CONT PRN IV SEE I/O RECORD 08/02/21 04:00 08/02/21 09:50 Sodium Bicarbonate 150 meq/Ringer's Solution 1,150 ml @ 75 mls/hr [id number] ONCE IV 08/02/21 04:30 08/02/21 19:49 08/02/21 06:34 Sodium Chloride 1,000 ml @ 999 mls/hr Q1H IV 08/02/21 04:30 08/02/21 06:29 DC 08/02/21 07:48 Phenylephrine HCl 100 mg/Sodium Chloride 260 ml @ 6.802 mls/ hr CONT PRN IV SEE I/O RECORD 08/02/21 06:00 08/02/21 06:04 Sodium Bicarbonate (Sodium Bicarb Adult 8.4% Syr) 50 meq 1X ONCE IV 08/02/21 06:30 08/02/21 06:31 DC 08/02/21 06:23 Albumin Human 100 ml @ 100 mls/hr 1X ONCE IV 08/02/21 06:30 08/02/21 07:29 DC 08/02/21 06:37 Vecuronium [place] (Norcuron Bolus) 10 mg 1X ONCE IV 08/02/21 07:10 08/02/21 07:56 DC 08/02/21 08:16 Lidocaine HCl (Buffered Lidocaine 1%) 3 ml 1X ONCE INJ 08/02/21 10:15 08/02/21 10:16 08/02/21 10:12 Heparin Sodium/ Sodium Chloride (HEPARIN for ARTERIAL LINE FLUSH) 50 unit 1X ONCE IV 08/02/21 10:15 08/02/21 10:16 08/02/21 10:13 Justifications for Admission Other Justification LAN COATES MD Aug 02, 2021 10:22
[2021-08-02] MEDS ORDERED: IV 1/2 NORMAL SALINE 1,000 ML IV ONE (10:45)
--- NOTE | 2021-08-02 11:04 | RAD ---
XR CHEST 1V Clinical History: Reason: HD cath placement / Spl. Instructions: / History: Technique: AP view of the chest was obtained at 08/02/2021 10:37 AM. Comparison: 4:31 AM. Findings: The heart is normal in size. There is low lung volumes causing crowding of pulmonary vessels. There i s multiple overlying devices. The endotracheal tube and enteric tube and right jugular line. Both esme es are not well seen due to superimposition of a defibrillator but are likely adequately positioned. This been interval placement of a second right jugular line with a similar position. There is mild pe rihilar opacities on the right. There is no pneumothorax. Impression: 1. Right perihilar infiltrates likely described atelectasis. 2. Stable appearance of the chest. Electronically signed by: Lawson Palomo III, MD (08/02/2021 11:02 AM) [facility]
[2021-08-02] MEDS: IV 1/2 NORMAL SALINE 1,000 ML IV SCH ×2 (11:06→15:00)
[2021-08-02 11:17] LABS: % BANDS 35 % (0-9); % LYMPHS 8 % (24-48); % METAS 2 % (0-0); % SEGS 55 % (35-66); NUCLEATED RBC 2
[2021-08-02 11:18] LABS: PLT ESTIMATE DECREASED (ADEQUATE)
[2021-08-02 11:19] LABS: TOXIC GRANULATION PRESENT; TOXIC VACUOLATION PRESENT
--- NOTE | 2021-08-02 12:38 | PDOC2 ---
CONSULT Date of Consult Date of Consult DATE: 08/02/21 TIME: 12:37 Reason for Consult Reason for Consult: Metabolic acidosis Identification/Chief Complaint Chief Complaint Unable to Obtain 2/2 Clinical status Source Source: Chart review History of Present Illness Reason for Visit: Patient is a 26-year-old AA female with past medical history DM, asthma, HTN, who presents to the ED with complaints of nausea and vomiting, admitted on 07/31 . She reported that she has been having nausea and vomiting since 07/15/2021. . She has been on Januvia, Metformin, and insulin Along with nausea and vomiting she also c/o of urinary frequency over the same time period. Patient admitted to not always being compliant with her home insulin. She lives at home with her sisters and 2 nieces. Labs admission showed WBC 30.3, hemoglobin 10.7, hematocrit 35.5, sodium 121, bicarb 9, BUN 24, creatinine 2.2, CBG 868, lactic acid 6.0, albumin 2.5, anion gap 29. Patient was given 2 L normal saline and initiated on insulin drip and DKA protocol. Was admitted to the ICU for further medical management. Patient's condition worsened overnight. Early this morning she became bradycardic and went to PEA. CODE BLUE was called and patient was coded for approximately 5 minutes. ROSC was achieved heart rhythm in SVT. Febrile, tachycardic. Per nursing became anuric. Bicarb low since admission . Has been getting Bicarb gtt . Nephrology consulted for Severe acidosis , Anuria, Post Code Blue Intubated on MV coded patient, PEA noted, CPR started, NAHCO3 amp given IV , epinephrine IV push given. SVT 165bpm (+) BP: 160/107 via arterial line. (-) corneal reflex, bilateral pupils non reactive, no gag and cough. SVT 260 defibrillated patient at 150. Past Medical History Cardiovascular: HTN Pulmonary: Asthma Endocrine: Diabetes Family History Family History: Hypertension Social History No ALCOHOL: none Drugs: None Current Problem List Problem List Problems Medical Problems: (1) DKA (diabetic ketoacidosis) Status: Acute Current Medications Current Medications Current Medications Sodium Chloride 1,000 ml @ 999 mls/hr 1X ONCE IV Last administered on 07/31/21at 17:30; Start 07/31/21 at 17:30; Stop 07/31/21 at 18:30; Status DC Ondansetron HCl (Zofran) 4 mg 1X ONCE IVP Last administered on 07/31/21at 20:04; Start 07/31/21 at 18:30; Stop 07/31/21 at 18:31; Status DC Ondansetron HCl (Zofran) 4 mg PRN Q8HRS PRN IVP NAUSEA/VOMITING Last administered on 08/01/21at 06:12; Start 07/31/21 at 19:00; Stop 08/01/21 at 07:42; Status DC Sodium Chloride 1,000 ml @ 1,000 mls/hr Q1H IV Last administered on 07/31/21at 19:40; Start 07/31/21 at 19:00; Stop 07/31/21 at 19:59; Status DC Insulin Human Regular 100 unit/ Sodium Chloride 101 ml @ 0 mls/hr CONT PRN PRN IV PER PROTOCOL Last administered on 08/02/21at 11:39; Start 07/31/21 at 19:00 Potassium Chloride/Water 100 ml @ 100 mls/hr PRN Q1HR PRN IV SEE COMMENTS; Start 07/31/21 at 19:00 Diphenhydramine HCl (Benadryl) 25 mg PRN Q6HRS PRN IVP ITCHING; Start 07/31/21 at 21:15 Hydralazine HCl (Apresoline Inj) 10 mg PRN Q4HRS PRN IVP ELEVATED BP, SEE COMMENTS; Start 07/31/21 at 21:15 Lorazepam (Ativan Inj) 0.5 mg PRN Q6HRS PRN IVP ANXIETY / AGITATION; Start 07/31/21 at 21:15 Ondansetron HCl (Zofran) 4 mg PRN Q6HRS PRN IVP NAUSEA/VOMITING 1st choice; Start 07/31/21 at 21:15 Prochlorperazine Edisylate (Compazine) 5 mg PRN Q6HRS PRN IVP NAUSEA/VOMITING 2nd choice; Start 07/31/21 at 21:15 Al Hydroxide/Mg Hydroxide (Mylanta Plus Xs) 30 ml PRN Q3HRS PRN PO HEARTBURN / GAS; Start 07/31/21 at 21:15 Calcium Carbonate/ Glycine (Tums) 500 mg PRN Q3HRS PRN PO HEARTBURN / GAS; Start 07/31/21 at 21:15 Famotidine (Pepcid Vial) 20 mg BID IVP Last administered on 08/01/21at 20:01; Start 08/01/21 at 09:00; Stop 08/02/21 at 03:33; Status DC Zolpidem Tartrate (Ambien) 5 mg PRN QHS PRN PO INSOMNIA, MAY REPEAT IN 1HR Last administered on 08/01/21at 20:20; Start 07/31/21 at 21:15 Info (Icu Electrolyte Protocol) 1 ea DAILY MC Last administered on 08/01/21at 09:00; Start 08/01/21 at 09:00 Sodium Chloride (Normal Saline Flush) 3 ml QSHIFT PRN IV AFTER MEDS AND BLOOD DRAWS; Start 07/31/21 at 21:15 Morphine Sulfate (Morphine Sulfate) 2 mg PRN Q1HR PRN IV PAIN; Start 07/31/21 at 21:15 Acetaminophen (Tylenol) 650 mg PRN Q6HRS PRN PO MILD PAIN / TEMP > 100.3'F Last administered on 08/01/21at 23:34; Start 07/31/21 at 21:45 Ceftriaxone Sodium (Rocephin) 1 gm Q24H IVP Last administered on 08/01/21at 22:09; Start 07/31/21 at 23:00; Stop 08/03/21 at 22:59 Potassium Phosphate 13.3 mmol/Sodium Chloride 104.4333 ml @ 52.217 m... Q2H IV Last administered on 08/01/21at 03:56; Start 07/31/21 at 23:45; Stop 08/01/21 at 05:44; Status DC Magnesium Sulfate/ Dextrose 100 ml @ 100 mls/hr DAILY IV Last administered on 08/02/21at 09:29; Start 08/01/21 at 00:00; Stop 08/03/21 at 00:00 Sodium Chloride 1,000 ml @ 250 mls/hr 1X ONCE IV Last administered on 08/01/21at 04:59; Start 08/01/21 at 04:15; Stop 08/01/21 at 08:14; Status DC Potassium Phosphate 13.3 mmol/Sodium Chloride 104.4333 ml @ 52.217 m... Q2H IV Last administered on 08/01/21at 10:35; Start 08/01/21 at 05:00; Stop 08/01/21 at 10:59; Status DC Dextrose/Sodium Chloride 1,000 ml @ 250 mls/hr Q4H IV Last administered on 08/02/21at 05:15; Start 08/01/21 at 05:15; Stop 08/02/21 at 09:49; Status DC Potassium Phosphate 15 mmol/ Sodium Chloride 105 ml @ 52.5 mls/hr Q2H IV Last administered on 08/01/21at 14:06; Start 08/01/21 at 12:00; Stop 08/01/21 at 15:59; Status DC Potassium Phosphate 15 mmol/ Sodium Chloride 105 ml @ 52.5 mls/hr Q2H IV Last administered on 08/01/21at 21:58; Start 08/01/21 at 20:00; Stop 08/01/21 at 23:59; Status DC Sodium Chloride 1,000 ml @ 1,000 mls/hr 1X ONCE IV Last administered on 08/01/21at 20:01; Start 08/01/21 at 19:30; Stop 08/01/21 at 20:29; Status DC Vancomycin HCl 1.75 gm/Sodium Chloride 500 ml @ 250 mls/hr 1X ONCE IV Last administered on 08/02/21at 01:36; Start 08/02/21 at 00:15; Stop 08/02/21 at 02:14; Status DC Sodium Bicarbonate (Sodium Bicarb Adult 8.4% Syr) 50 meq 1X ONCE IV Last administered on 08/02/21at 00:16; Start 08/02/21 at 00:15; Stop 08/02/21 at 00:16; Status DC Acetaminophen (Tylenol Supp) 650 mg PRN Q6HRS PRN MO MILD PAIN / TEMP > 100.3'F Last administered on 08/02/21at 00:18; Start 08/02/21 at 00:15 Potassium Chloride/Water 100 ml @ 100 mls/hr Q1H IV Last administered on 08/02/21at 06:36; Start 08/02/21 at 01:30; Stop 08/02/21 at 05:29; Status DC Norepinephrine Bitartrate 8 mg/ Dextrose 258 ml @ 5.062 mls/ hr CONT PRN IV PER PROTOCOL Last administered on 08/02/21at 06:03; Start 08/02/21 at 01:15; Stop 08/02/21 at 06:59; Status DC Fentanyl Citrate 30 ml @ 2.5 mls/hr CONT PRN IV SEE PROTOCOL Last administered on 08/02/21at 06:27; Start 08/02/21 at 03:30 Midazolam HCl 100 ml @ 1 mls/hr CONT PRN IV SEE PROTOCOL; Start 08/02/21 at 03:30; Stop 08/02/21 at 03:23; Status DC Propofol 100 ml @ 2.616 mls/ hr CONT PRN IV PER PROTOCOL; Start 08/02/21 at 03:30 Dexmedetomidine HCl 400 mcg/ Sodium Chloride 100 ml @ 4.36 mls/hr CONT PRN IV PER PROTOCOL; Start 08/02/21 at 03:30 Sodium Chloride 500 ml @ 500 mls/hr 1X PRN PRN IV SEE COMMENTS; Start 08/02/21 at 03:30 Atropine Sulfate (ATROPINE 0.5mg SYRINGE) 0.5 mg PRN Q5MIN PRN IV SEE COMMENTS; Start 08/02/21 at 03:30 Midazolam HCl 100 ml @ 1 mls/hr CONT PRN IV SEE PROTOCOL Last administered on 08/02/21at 06:40; Start 08/02/21 at 03:30 Famotidine (Pepcid Vial) 20 mg QHS IVP ; Start 08/02/21 at 21:00 Vasopressin 20 unit/Sodium Chloride 101 ml @ 9 mls/hr CONT PRN IV SEE I/O RECORD Last administered on 08/02/21at 09:50; Start 08/02/21 at 04:00 Norepinephrine Bitartrate 32 mg/ Dextrose 250 ml @ 12.347 mls/ hr CONT PRN IV SEE I/O RECORD; Start 08/02/21 at 07:00 Sodium Bicarbonate 150 meq/Ringer's Solution 1,150 ml @ 75 mls/hr [id number] ONCE IV Last administered on 08/02/21at 06:34; Start 08/02/21 at 04:30; Stop 08/02/21 at 19:49 Sodium Chloride 1,000 ml @ 999 mls/hr Q1H IV Last administered on 08/02/21at 07:48; Start 08/02/21 at 04:30; Stop 08/02/21 at 06:29; Status DC Phenylephrine HCl 50 mg/Sodium Chloride 255 ml @ 13.342 mls/ hr CONT PRN IV PER PROTOCOL; Start 08/02/21 at 06:00; Status UNV Phenylephrine HCl 100 mg/Sodium Chloride 260 ml @ 6.802 mls/ hr CONT PRN IV SEE I/O RECORD Last administered on 08/02/21at 06:04; Start 08/02/21 at 06:00 Sodium Bicarbonate (Sodium Bicarb Adult 8.4% Syr) 50 meq 1X ONCE IV Last administered on 08/02/21at 06:23; Start 08/02/21 at 06:30; Stop 08/02/21 at 06:31; Status DC Albumin Human 100 ml @ 100 mls/hr 1X ONCE IV Last administered on 08/02/21at 06:37; Start 08/02/21 at 06:30; Stop 08/02/21 at 07:29; Status DC Vecuronium Phillips (Norcuron Bolus) 10 mg STK-MED ONCE IV ; Start 08/02/21 at 07:01; Stop 08/02/21 at 07:02; Status DC Vecuronium Phillips (Norcuron Bolus) 10 mg 1X ONCE IV Last administered on 08/02/21at 08:16; Start 08/02/21 at 07:10; Stop 08/02/21 at 07:56; Status DC Vecuronium Phillips (Norcuron Bolus) 10 mg 1X ONCE IV ; Start 08/02/21 at 07:45; Stop 08/02/21 at 08:01; Status DC Sodium Chloride 1,000 ml @ 250 mls/hr 1X IV ; Start 08/02/21 at 10:00; Stop 08/02/21 at 10:39; Status DC Lidocaine HCl (Buffered Lidocaine 1%) 3 ml 1X ONCE INJ Last administered on 08/02/21at 10:12; Start 08/02/21 at 10:15; Stop 08/02/21 at 10:16; Status DC Heparin Sodium/ Sodium Chloride (HEPARIN for ARTERIAL LINE FLUSH) 50 unit 1X ONCE IV Last administered on 08/02/21at 10:13; Start 08/02/21 at 10:15; Stop 08/02/21 at 10:16; Status DC Heparin Sodium/ Sodium Chloride 500 ml @ As Directed STK-MED ONCE .ROUTE ; Start 08/02/21 at 10:16; Stop 08/02/21 at 10:16; Status DC Lidocaine HCl (Buffered Lidocaine 1%) 3 ml STK-MED ONCE .ROUTE ; Start 08/02/21 at 10:16; Stop 08/02/21 at 10:17; Status DC Sodium Chloride 1,000 ml @ 250 mls/hr 1X ONCE IV ; Start 08/02/21 at 10:45; St op 08/02/21 at 14:44; Status Cancel Sodium Chloride 1,000 ml @ 250 mls/hr Q4H IV Last administered on 08/02/21at 11:06; Start 08/02/21 at 11:00 Active Scripts Active Advair 500-50 Diskus (Fluticasone/Salmeterol) 1 Each Disk.w.dev 1 Puff IH BID Albuterol Sulfate Neb Soln (Albuterol Sulfate) 2.5 Mg/3 Ml Vial.neb 1 Vial NEB PRN Q4HRS PRN Proair Hfa Inhaler (Albuterol Sulfate) 8.5 Gm Hfa.aer.ad 1 Puff INH Q4HRS PRN Benzonatate 200 Mg Capsule 1 Cap PO TID Prednisone 20 Mg Tablet 40 Mg PO DAILY 5 Days Reported Lantus Solostar (Insulin Glargine,Hum.rec.anlog) 100 Unit/1 Ml Insuln.pen 30 Unit SQ QHS Senna-Docusate Sodium Tablet (Sennosides/Docusate Sodium) 1 Each Tablet 1 Tab PO DAILY 20 Days Advair 100-50 Diskus (Fluticasone/Salmeterol) 1 Each Disk.w.dev 1 Puff IH BID Januvia (Sitagliptin Phosphate) 100 Mg Tablet 1 Tab PO DAILY Montelukast Sodium Tablet (Montelukast Sodium) 10 Mg Tablet 10 Mg PO HS Metformin Hcl 1,000 Mg Tablet 1,000 Mg PO BIDWMEALS Hydrochlorothiazide 25 Mg Tablet 25 Mg PO DAILY Lisinopril 40 Mg Tablet 1 Tab PO DAILY Latuda (Lurasidone Hcl) 20 Mg Tablet 1 Tab PO QHS 30 Days Proair Hfa (Albuterol Sulfate) 8.5 Gm Hfa.aer.ad 2 Puff IH PRN Q4-6HRS PRN 21 Days Albuterol Sulfate Neb Soln (Albuterol Sulfate) 2.5 Mg/3 Ml Vial.neb 1 Vial NEB PRN Q4HRS PRN Farxiga (Dapagliflozin Propanediol) 5 Mg Tablet 5 Mg PO DAILY Jardiance (Empaglifozin) 10 Mg Tablet 10 Mg PO DAILY Amlodipine Besylate 10 Mg Tablet 10 Mg PO DAILY Fluoxetine Hcl 40 Mg Capsule 1 Cap PO DAILY Allergies Allergies: Coded Allergies: potassium chloride (Verified Adverse Reaction, Unknown, "PALMS PEEL", 07/31/21) ROS Review of System Unable to Obtain 2/2 above Physical Exam Physical Exam General: Intubated , on MV HEEN Intubated Lungs decreased at bases Heart:Tachycardic Abdomen: Soft, Obese Extremities: No clubbing, No cyanosis, No edema Skin: No rashes, No breakdown Neuro Intibated. Post Code blue Mustafa + Psych Unable to Obtain Vital Signs Vital Signs Date Time Temp Pulse Resp B/P (MAP) Pulse Ox O2 Delivery O2 Flow Rate FiO2 08/02/21 12:00 99.5 130 26 112/68 100 Ventilator 99.5 Assessment & Plan SEVERO 2/2 Sepsis/ Post Code Blue , Anuric now .Bladder scan ordered No UOP. Creat elevated at admission 2.2- No baseline to compare. Cr trended up . Consulted this morning for Acidosis. Currently on 3 pressors. Will start CRRT if tolerates. No UF . Discussed with hims coder Acidosis- admitted with DKA , Low Bicarb. Sung sbeen on DKA protocol since admission on 07/31 . Post Code Blue . Paged by nursing for acidosis and anuria . start CRRT as tolerated . Continue Bicarg gtt HypoCalcemia- Reviewed labs during my initial exam - Ca low- Corrected for Albumin in 7's (Ca normal poa) . Ca has not been replaced. . Initiating CRRT. If stays low, replace IV. Dw nursing Ac Resp Failure- Post Code/PEA. Intubated /MV Anemia Hgb trending down since admission (Initial could have been high 2/2 [place]) DKA POA- BS 800+ , Bicarb 9, have been on DKA protocol UTI POA - E Coli on Cx On Abx , primary managing Sepsis -gram Negative Rods 1 out of 4 bottles . Suspect 2/2 UTI Labs Labs Laboratory Tests Test 07/31/21 17:24 07/31/21 17:29 07/31/21 20:00 07/31/21 20:50 O2 Saturation 97 % (92-99) Arterial Blood pH 7.29 (7.35-7.45) Arterial Blood pCO2 at Patient Temp < 15 mmHg (35-46) Arterial Blood pO2 at Patient Temp 92 mmHg (85-108) Arterial Blood HCO3 6 mmol/L (21-28) Arterial Blood Base Excess -18 mmol/L (-3-3) FiO2 Room air White Blood Count 30.3 x10^3/uL (4.0-11.0) Red Blood Count 3.97 x10^6/uL (3.50-5.40) Hemoglobin 10.7 g/dL (12.0-15.5) Hematocrit 35.5 % (36.0-47.0) Mean Corpuscular Volume 90 fL (79-100) Mean Corpuscular Hemoglobin 27 pg (25-35) Mean Corpuscular Hemoglobin Concent 30 g/dL (31-37) Red Cell Distribution Width 16.1 % (11.5-14.5) Platelet Count 231 x10^3/uL (140-400) Neutrophils (%) (Auto) 93 % (31-73) Lymphocytes (%) (Auto) 2 % (24-48) Monocytes (%) (Auto) 4 % (0-9) Eosinophils (%) (Auto) 0 % (0-3) Basophils (%) (Auto) 1 % (0-3) Neutrophils # (Auto) 28.3 x10^3/uL (1.8-7.7) Lymphocytes # (Auto) 0.5 x10^3/uL (1.0-4.8) Monocytes # (Auto) 1.2 x10^3/uL (0.0-1.1) Eosinophils # (Auto) 0.1 x10^3/uL (0.0-0.7) Basophils # (Auto) 0.2 x10^3/uL (0.0-0.2) Segmented Neutrophils % 62 % (35-66) Band Neutrophils % 30 % (0-9) Lymphocytes % 3 % (24-48) Monocytes % 4 % (0-10) Metamyelocytes % 1 % (0-0) Toxic Vacuolation Mod Dohle Bodies Few Platelet Estimate Adequate (ADEQUATE) Large Platelets Few Giant Platelets Occ Maternal Serum HCG Beta Subunit < 1 mIU/mL (0-5) Sodium Level 121 mmol/L (136-145) Potassium Level 3.9 mmol/L (3.5-5.1) Chloride Level 83 mmol/L (98-107) Carbon Dioxide Level 9 mmol/L (21-32) Anion Gap 29 (6-14) Blood Urea Nitrogen 24 mg/dL (7-20) Creatinine 2.2 mg/dL (0.6-1.0) Estimated GFR (Cockcroft-Gault) 32.6 BUN/Creatinine Ratio 11 (6-20) Glucose Level 868 mg/dL (70-99) 846 mg/dL (70-99) Lactic Acid Level 6.0 mmol/L (0.4-2.0) 4.8 mmol/L (0.4-2.0) Calcium Level 9.3 mg/dL (8.5-10.1) Total Bilirubin 1.5 mg/dL (0.2-1.0) Aspartate Amino Transf (AST/SGOT) 62 U/L (15-37) Alanine Aminotransferase (ALT/SGPT) 50 U/L (14-59) Alkaline Phosphatase 153 U/L (46-116) Troponin I High Sensitivity 11 ng/L (4-50) Total Protein 8.7 g/dL (6.4-8.2) Albumin 2.5 g/dL (3.4-5.0) Albumin/Globulin Ratio 0.4 (1.0-1.7) Hemoglobin A1c 9.5 % (4.8-5.6) Phosphorus Level 2.0 mg/dL (2.6-4.7) Magnesium Level 2.0 mg/dL (1.8-2.4) Test 07/31/21 22:10 07/31/21 22:45 07/31/21 23:33 08/01/21 00:40 Urine Collection Type Unknown Urine Color (Auto) Yellow Urine Turbidity Hazy Urine pH (Auto) 5.5 (<5.0-8.0) Urine Specific [place] 1.015 (1.000-1.030) Urine Protein (Auto) 70 mg/dL (Negative) Urine Glucose (Auto)(UA) >=1000 mg/dL (Negative) Urine Ketones (Auto) 40 mg/dL (Negative) Urine Blood (Auto) Large (Negative) Urine Nitrite Negative (Negative) Urine Bilirubin (Auto) Negative (Negative) Urine Urobilinogen (Auto) 2 mg/dL (Normal) Urine Leukocyte Esterase (Auto) Large (Negative) Urine RBC Occ /HPF (0-2) Urine WBC Tntc /HPF (0-4) Urine Squamous Epithelial Cells Occ /LPF Urine Transitional Epithelial Cells Occ /LPF Urine Bacteria Many /HPF (0-FEW) Urine Mucus Slight /LPF Sodium Level 126 mmol/L (136-145) Potassium Level 2.7 mmol/L (3.5-5.1) Chloride Level 92 mmol/L (98-107) Carbon Dioxide Level 9 mmol/L (21-32) Anion Gap 25 (6-14) Blood Urea Nitrogen 28 mg/dL (7-20) Creatinine 2.1 mg/dL (0.6-1.0) Estimated GFR (Cockcroft-Gault) 34.4 Glucose Level 647 mg/dL (70-99) Calcium Level 7.8 mg/dL (8.5-10.1) Phosphorus Level 1.3 mg/dL (2.6-4.7) Magnesium Level 1.6 mg/dL (1.8-2.4) Glucose (Fingerstick) 479 mg/dL (70-99) 416 mg/dL (70-99) Test 08/01/21 00:55 08/01/21 01:31 08/01/21 02:41 08/01/21 03:45 Coronavirus (COVID-19)(PCR) Not detected (NOT DETECTD) Influenza Type A Antigen Negative (NEGATIVE) Influenza Type B Antigen Negative (NEGATIVE) SARS-CoV-2 Antigen (Rapid) Negative (NEGATIVE) Glucose (Fingerstick) 426 mg/dL (70-99) 367 mg/dL (70-99) White Blood Count 17.3 x10^3/uL (4.0-11.0) Red Blood Count 3.68 x10^6/uL (3.50-5.40) Hemoglobin 9.8 g/dL (12.0-15.5) Hematocrit 31.5 % (36.0-47.0) Mean Corpuscular Volume 86 fL (79-100) Mean Corpuscular Hemoglobin 27 pg (25-35) Mean Corpuscular Hemoglobin Concent 31 g/dL (31-37) Red Cell Distribution Width 15.4 % (11.5-14.5) Platelet Count 150 x10^3/uL (140-400) Neutrophils (%) (Auto) 76 % (31-73) Lymphocytes (%) (Auto) 5 % (24-48) Monocytes (%) (Auto) 6 % (0-9) Eosinophils (%) (Auto) 14 % (0-3) Basophils (%) (Auto) 0 % (0-3) Neutrophils # (Auto) 13.1 x10^3/uL (1.8-7.7) Lymphocytes # (Auto) 0.8 x10^3/uL (1.0-4.8) Monocytes # (Auto) 1.0 x10^3/uL (0.0-1.1) Eosinophils # (Auto) 2.4 x10^3/uL (0.0-0.7) Basophils # (Auto) 0.0 x10^3/uL (0.0-0.2) Sodium Level 134 mmol/L (136-145) Potassium Level 2.7 mmol/L (3.5-5.1) Chloride Level 100 mmol/L (98-107) Carbon Dioxide Level 14 mmol/L (21-32) Anion Gap 20 (6-14) Blood Urea Nitrogen 24 mg/dL (7-20) Creatinine 2.1 mg/dL (0.6-1.0) Estimated GFR (Cockcroft-Gault) 34.4 Glucose Level 339 mg/dL (70-99) Calcium Level 7.8 mg/dL (8.5-10.1) Phosphorus Level 1.1 mg/dL (2.6-4.7) Magnesium Level 1.9 mg/dL (1.8-2.4) Thyroid Stimulating Hormone (TSH) 1.358 uIU/mL (0.358-3.74) Test 08/01/21 03:46 08/01/21 04:52 08/01/21 05:57 08/01/21 07:03 Glucose (Fingerstick) 321 mg/dL (70-99) 231 mg/dL (70-99) 181 mg/dL (70-99) 182 mg/dL (70-99) Test 08/01/21 08:07 08/01/21 09:09 08/01/21 10:08 08/01/21 11:00 Glucose (Fingerstick) 191 mg/dL (70-99) 171 mg/dL (70-99) 161 mg/dL (70-99) Sodium Level 133 mmol/L (136-145) Potassium Level 3.6 mmol/L (3.5-5.1) Chloride Level 103 mmol/L (98-107) Carbon Dioxide Level 13 mmol/L (21-32) Anion Gap 17 (6-14) Blood Urea Nitrogen 24 mg/dL (7-20) Creatinine 2.2 mg/dL (0.6-1.0) Estimated GFR (Cockcroft-Gault) 32.6 Glucose Level 173 mg/dL (70-99) Calcium Level 7.3 mg/dL (8.5-10.1) Phosphorus Level 2.8 mg/dL (2.6-4.7) Magnesium Level 2.0 mg/dL (1.8-2.4) Test 08/01/21 11:10 08/01/21 12:02 08/01/21 12:56 08/01/21 14:01 Glucose (Fingerstick) 155 mg/dL (70-99) 164 mg/dL (70-99) 151 mg/dL (70-99) 182 mg/dL (70-99) Test 08/01/21 15:07 08/01/21 16:06 08/01/21 16:56 08/01/21 17:30 Glucose (Fingerstick) 150 mg/dL (70-99) 148 mg/dL (70-99) 151 mg/dL (70-99) Sodium Level 138 mmol/L (136-145) Potassium Level 3.0 mmol/L (3.5-5.1) Chloride Level 106 mmol/L (98-107) Carbon Dioxide Level 12 mmol/L (21-32) Anion Gap 20 (6-14) Blood Urea Nitrogen 23 mg/dL (7-20) Creatinine 2.3 mg/dL (0.6-1.0) Estimated GFR (Cockcroft-Gault) 31.0 Glucose Level 151 mg/dL (70-99) Calcium Level 7.1 mg/dL (8.5-10.1) Phosphorus Level 3.3 mg/dL (2.6-4.7) Magnesium Level 1.9 mg/dL (1.8-2.4) Test 08/01/21 18:00 08/01/21 19:03 08/01/21 20:09 08/01/21 22:16 Glucose (Fingerstick) 138 mg/dL (70-99) 137 mg/dL (70-99) 146 mg/dL (70-99) 180 mg/dL (70-99) Test 08/01/21 23:16 08/01/21 23:30 08/02/21 00:08 08/02/21 00:26 Glucose (Fingerstick) 240 mg/dL (70-99) 271 mg/dL (70-99) White Blood Count 13.0 x10^3/uL (4.0-11.0) Red Blood Count 3.27 x10^6/uL (3.50-5.40) Hemoglobin 8.8 g/dL (12.0-15.5) Hematocrit 27.8 % (36.0-47.0) Mean Corpuscular Volume 85 fL (79-100) Mean Corpuscular Hemoglobin 27 pg (25-35) Mean Corpuscular Hemoglobin Concent 32 g/dL (31-37) Red Cell Distribution Width 15.3 % (11.5-14.5) Platelet Count 99 x10^3/uL (140-400) Neutrophils (%) (Auto) 87 % (31-73) Lymphocytes (%) (Auto) 5 % (24-48) Monocytes (%) (Auto) 6 % (0-9) Eosinophils (%) (Auto) 2 % (0-3) Basophils (%) (Auto) 0 % (0-3) Neutrophils # (Auto) 11.3 x10^3/uL (1.8-7.7) Lymphocytes # (Auto) 0.6 x10^3/uL (1.0-4.8) Monocytes # (Auto) 0.7 x10^3/uL (0.0-1.1) Eosinophils # (Auto) 0.3 x10^3/uL (0.0-0.7) Basophils # (Auto) 0.0 x10^3/uL (0.0-0.2) Sodium Level 136 mmol/L (136-145) Potassium Level 3.8 mmol/L (3.5-5.1) Chloride Level 107 mmol/L (98-107) Carbon Dioxide Level 9 mmol/L (21-32) Anion Gap 20 (6-14) Blood Urea Nitrogen 24 mg/dL (7-20) Creatinine 2.4 mg/dL (0.6-1.0) Estimated GFR (Cockcroft-Gault) 29.5 Glucose Level 243 mg/dL (70-99) Calcium Level 6.4 mg/dL (8.5-10.1) Phosphorus Level 5.4 mg/dL (2.6-4.7) Magnesium Level 1.6 mg/dL (1.8-2.4) O2 Saturation 97 % (92-99) Arterial Blood pH 7.29 (7.35-7.45) Arterial Blood pCO2 at Patient Temp 15 mmHg (35-46) Arterial Blood pO2 at Patient Temp 103 mmHg (85-108) Arterial Blood HCO3 7 mmol/L (21-28) Arterial Blood Base Excess -18 mmol/L (-3-3) FiO2 21 Test 08/02/21 01:32 08/02/21 02:41 08/02/21 03:20 08/02/21 03:21 Glucose (Fingerstick) 248 mg/dL (70-99) 248 mg/dL (70-99) 231 mg/dL (70-99) Sodium Level 141 mmol/L (136-145) Potassium Level 4.2 mmol/L (3.5-5.1) Chloride Level 110 mmol/L (98-107) Carbon Dioxide Level 7 mmol/L (21-32) Anion Gap 24 (6-14) Blood Urea Nitrogen 27 mg/dL (7-20) Creatinine 2.8 mg/dL (0.6-1.0) Estimated GFR (Cockcroft-Gault) 24.7 BUN/Creatinine Ratio 10 (6-20) Glucose Level 290 mg/dL (70-99) Calcium Level 6.3 mg/dL (8.5-10.1) Phosphorus Level 7.2 mg/dL (2.6-4.7) Magnesium Level 1.9 mg/dL (1.8-2.4) Total Bilirubin 1.0 mg/dL (0.2-1.0) Aspartate Amino Transf (AST/SGOT) 214 U/L (15-37) Alanine Aminotransferase (ALT/SGPT) 71 U/L (14-59) Alkaline Phosphatase 122 U/L (46-116) Total Protein 5.2 g/dL (6.4-8.2) Albumin 1.3 g/dL (3.4-5.0) Albumin/Globulin Ratio 0.3 (1.0-1.7) Test 08/02/21 03:50 08/02/21 05:50 08/02/21 05:54 08/02/21 07:00 Glucose (Fingerstick) 244 mg/dL (70-99) 273 mg/dL (70-99) 259 mg/dL (70-99) O2 Saturation 100 % (92-99) Arterial Blood pH 6.91 (7.35-7.45) Arterial Blood pCO2 at Patient Temp 29 mmHg (35-46) Arterial Blood pO2 at Patient Temp 457 mmHg (85-108) Arterial Blood HCO3 6 mmol/L (21-28) Arterial Blood Base Excess -25 mmol/L (-3-3) FiO2 100 Test 08/02/21 07:45 08/02/21 08:05 08/02/21 08:10 08/02/21 08:55 O2 Saturation 99 % (92-99) Arterial Blood pH 6.90 (7.35-7.45) Arterial Blood pH (Temp corrected) 6.88 Arterial Blood pCO2 at Patient Temp 30 mmHg (35-46) Arterial Blood pCO2 (Temp correct) 32 mmHg Arterial Blood pO2 at Patient Temp 295 mmHg (85-108) Arterial Blood pO2 (Temp corrected) 304 mmHg Arterial Blood HCO3 6 mmol/L (21-28) Arterial Blood Base Excess -25 mmol/L (-3-3) FiO2 100% ac 26 450 10 Sodium Level 143 mmol/L (136-145) Potassium Level 4.6 mmol/L (3.5-5.1) Chloride Level 113 mmol/L (98-107) Carbon Dioxide Level 8 mmol/L (21-32) Anion Gap 22 (6-14) Blood Urea Nitrogen 23 mg/dL (7-20) Creatinine 2.9 mg/dL (0.6-1.0) Estimated GFR (Cockcroft-Gault) 23.7 Glucose Level 310 mg/dL (70-99) Calcium Level 5.2 mg/dL (8.5-10.1) Phosphorus Level 6.6 mg/dL (2.6-4.7) Magnesium Level 1.9 mg/dL (1.8-2.4) Glucose (Fingerstick) 303 mg/dL (70-99) White Blood Count 11.7 x10^3/uL (4.0-11.0) Red Blood Count 2.60 x10^6/uL (3.50-5.40) Hemoglobin 6.9 g/dL (12.0-15.5) Hematocrit 22.9 % (36.0-47.0) Mean Corpuscular Volume 88 fL (79-100) Mean Corpuscular Hemoglobin 27 pg (25-35) Mean Corpuscular Hemoglobin Concent 30 g/dL (31-37) Red Cell Distribution Width 16.0 % (11.5-14.5) Platelet Count 85 x10^3/uL (140-400) Neutrophils (%) (Auto) 71 % (31-73) Lymphocytes (%) (Auto) 7 % (24-48) Monocytes (%) (Auto) 2 % (0-9) Eosinophils (%) (Auto) 20 % (0-3) Basophils (%) (Auto) 0 % (0-3) Neutrophils # (Auto) 8.4 x10^3/uL (1.8-7.7) Lymphocytes # (Auto) 0.8 x10^3/uL (1.0-4.8) Monocytes # (Auto) 0.2 x10^3/uL (0.0-1.1) Eosinophils # (Auto) 2.3 x10^3/uL (0.0-0.7) Basophils # (Auto) 0.0 x10^3/uL (0.0-0.2) Segmented Neutrophils % 55 % (35-66) Band Neutrophils % 35 % (0-9) Lymphocytes % 8 % (24-48) Metamyelocytes % 2 % (0-0) Nucleated Red Blood Cells 2 Toxic Granulation Present Toxic Vacuolation Present Dohle Bodies Present Platelet Estimate Decreased (ADEQUATE) Large Platelets Present Giant Platelets Few Test 08/02/21 09:17 08/02/21 09:52 08/02/21 10:57 08/02/21 11:58 Glucose (Fingerstick) 282 mg/dL (70-99) 252 mg/dL (70-99) 294 mg/dL (70-99) 210 mg/dL (70-99) Laboratory Tests Test 08/01/21 12:56 08/01/21 14:01 08/01/21 15:07 08/01/21 16:06 Glucose (Fingerstick) 151 mg/dL (70-99) 182 mg/dL (70-99) 150 mg/dL (70-99) 148 mg/dL (70-99) Test 08/01/21 16:56 08/01/21 17:30 08/01/21 18:00 08/01/21 19:03 Glucose (Fingerstick) 151 mg/dL (70-99) 138 mg/dL (70-99) 137 mg/dL (70-99) Sodium Level 138 mmol/L (136-145) Potassium Level 3.0 mmol/L (3.5-5.1) Chloride Level 106 mmol/L (98-107) Carbon Dioxide Level 12 mmol/L (21-32) Anion Gap 20 (6-14) Blood Urea Nitrogen 23 mg/dL (7-20) Creatinine 2.3 mg/dL (0.6-1.0) Estimated GFR (Cockcroft-Gault) 31.0 Glucose Level 151 mg/dL (70-99) Calcium Level 7.1 mg/dL (8.5-10.1) Phosphorus Level 3.3 mg/dL (2.6-4.7) Magnesium Level 1.9 mg/dL (1.8-2.4) Test 08/01/21 20:09 08/01/21 22:16 08/01/21 23:16 08/01/21 23:30 Glucose (Fingerstick) 146 mg/dL (70-99) 180 mg/dL (70-99) 240 mg/dL (70-99) White Blood Count 13.0 x10^3/uL (4.0-11.0) Red Blood Count 3.27 x10^6/uL (3.50-5.40) Hemoglobin 8.8 g/dL (12.0-15.5) Hematocrit 27.8 % (36.0-47.0) Mean Corpuscular Volume 85 fL (79-100) Mean Corpuscular Hemoglobin 27 pg (25-35) Mean Corpuscular Hemoglobin Concent 32 g/dL (31-37) Red Cell Distribution Width 15.3 % (11.5-14.5) Platelet Count 99 x10^3/uL (140-400) Neutrophils (%) (Auto) 87 % (31-73) Lymphocytes (%) (Auto) 5 % (24-48) Monocytes (%) (Auto) 6 % (0-9) Eosinophils (%) (Auto) 2 % (0-3) Basophils (%) (Auto) 0 % (0-3) Neutrophils # (Auto) 11.3 x10^3/uL (1.8-7.7) Lymphocytes # (Auto) 0.6 x10^3/uL (1.0-4.8) Monocytes # (Auto) 0.7 x10^3/uL (0.0-1.1) Eosinophils # (Auto) 0.3 x10^3/uL (0.0-0.7) Basophils # (Auto) 0.0 x10^3/uL (0.0-0.2) Sodium Level 136 mmol/L (136-145) Potassium Level 3.8 mmol/L (3.5-5.1) Chloride Level 107 mmol/L (98-107) Carbon Dioxide Level 9 mmol/L (21-32) Anion Gap 20 (6-14) Blood Urea Nitrogen 24 mg/dL (7-20) Creatinine 2.4 mg/dL (0.6-1.0) Estimated GFR (Cockcroft-Gault) 29.5 Glucose Level 243 mg/dL (70-99) Calcium Level 6.4 mg/dL (8.5-10.1) Phosphorus Level 5.4 mg/dL (2.6-4.7) Magnesium Level 1.6 mg/dL (1.8-2.4) Test 08/02/21 00:08 08/02/21 00:26 08/02/21 01:32 08/02/21 02:41 O2 Saturation 97 % (92-99) Arterial Blood pH 7.29 (7.35-7.45) Arterial Blood pCO2 at Patient Temp 15 mmHg (35-46) Arterial Blood pO2 at Patient Temp 103 mmHg (85-108) Arterial Blood HCO3 7 mmol/L (21-28) Arterial Blood Base Excess -18 mmol/L (-3-3) FiO2 21 Glucose (Fingerstick) 271 mg/dL (70-99) 248 mg/dL (70-99) 248 mg/dL (70-99) Test 08/02/21 03:20 08/02/21 03:21 08/02/21 03:50 08/02/21 05:50 Sodium Level 141 mmol/L (136-145) Potassium Level 4.2 mmol/L (3.5-5.1) Chloride Level 110 mmol/L (98-107) Carbon Dioxide Level 7 mmol/L (21-32) Anion Gap 24 (6-14) Blood Urea Nitrogen 27 mg/dL (7-20) Creatinine 2.8 mg/dL (0.6-1.0) Estimated GFR (Cockcroft-Gault) 24.7 BUN/Creatinine Ratio 10 (6-20) Glucose Level 290 mg/dL (70-99) Calcium Level 6.3 mg/dL (8.5-10.1) Phosphorus Level 7.2 mg/dL (2.6-4.7) Magnesium Level 1.9 mg/dL (1.8-2.4) Total Bilirubin 1.0 mg/dL (0.2-1.0) Aspartate Amino Transf (AST/SGOT) 214 U/L (15-37) Alanine Aminotransferase (ALT/SGPT) 71 U/L (14-59) Alkaline Phosphatase 122 U/L (46-116) Total Protein 5.2 g/dL (6.4-8.2) Albumin 1.3 g/dL (3.4-5.0) Albumin/Globulin Ratio 0.3 (1.0-1.7) Glucose (Fingerstick) 231 mg/dL (70-99) 244 mg/dL (70-99) 273 mg/dL (70-99) Test 08/02/21 05:54 08/02/21 07:00 08/02/21 07:45 08/02/21 08:05 O2 Saturation 100 % (92-99) 99 % (92-99) Arterial Blood pH 6.91 (7.35-7.45) 6.90 (7.35-7.45) Arterial Blood pCO2 at Patient Temp 29 mmHg (35-46) 30 mmHg (35-46) Arterial Blood pO2 at Patient Temp 457 mmHg (85-108) 295 mmHg (85-108) Arterial Blood HCO3 6 mmol/L (21-28) 6 mmol/L (21-28) Arterial Blood Base Excess -25 mmol/L (-3-3) -25 mmol/L (-3-3) FiO2 100 100% ac 26 450 10 Glucose (Fingerstick) 259 mg/dL (70-99) Arterial Blood pH (Temp corrected) 6.88 Arterial Blood pCO2 (Temp correct) 32 mmHg Arterial Blood pO2 (Temp corrected) 304 mmHg Sodium Level 143 mmol/L (136-145) Potassium Level 4.6 mmol/L (3.5-5.1) Chloride Level 113 mmol/L (98-107) Carbon Dioxide Level 8 mmol/L (21-32) Anion Gap 22 (6-14) Blood Urea Nitrogen 23 mg/dL (7-20) Creatinine 2.9 mg/dL (0.6-1.0) Estimated GFR (Cockcroft-Gault) 23.7 Glucose Level 310 mg/dL (70-99) Calcium Level 5.2 mg/dL (8.5-10.1) Phosphorus Level 6.6 mg/dL (2.6-4.7) Magnesium Level 1.9 mg/dL (1.8-2.4) Test 08/02/21 08:10 08/02/21 08:55 08/02/21 09:17 08/02/21 09:52 Glucose (Fingerstick) 303 mg/dL (70-99) 282 mg/dL (70-99) 252 mg/dL (70-99) White Blood Count 11.7 x10^3/uL (4.0-11.0) Red Blood Count 2.60 x10^6/uL (3.50-5.40) Hemoglobin 6.9 g/dL (12.0-15.5) Hematocrit 22.9 % (36.0-47.0) Mean Corpuscular Volume 88 fL (79-100) Mean Corpuscular Hemoglobin 27 pg (25-35) Mean Corpuscular Hemoglobin Concent 30 g/dL (31-37) Red Cell Distribution Width 16.0 % (11.5-14.5) Platelet Count 85 x10^3/uL (140-400) Neutrophils (%) (Auto) 71 % (31-73) Lymphocytes (%) (Auto) 7 % (24-48) Monocytes (%) (Auto) 2 % (0-9) Eosinophils (%) (Auto) 20 % (0-3) Basophils (%) (Auto) 0 % (0-3) Neutrophils # (Auto) 8.4 x10^3/uL (1.8-7.7) Lymphocytes # (Auto) 0.8 x10^3/uL (1.0-4.8) Monocytes # (Auto) 0.2 x10^3/uL (0.0-1.1) Eosinophils # (Auto) 2.3 x10^3/uL (0.0-0.7) Basophils # (Auto) 0.0 x10^3/uL (0.0-0.2) Segmented Neutrophils % 55 % (35-66) Band Neutrophils % 35 % (0-9) Lymphocytes % 8 % (24-48) Metamyelocytes % 2 % (0-0) Nucleated Red Blood Cells 2 Toxic Granulation Present Toxic Vacuolation Present Dohle Bodies Present Platelet Estimate Decreased (ADEQUATE) Large Platelets Present Giant Platelets Few Test 08/02/21 10:57 08/02/21 11:58 Glucose (Fingerstick) 294 mg/dL (70-99) 210 mg/dL (70-99) Review All relevant outside records, renal labs, imaging studies, telemetry/EKG's were reviewed. Images Images n: HD cath placement / Spl. Instructions: / History: Technique: AP view of the chest was obtained at 08/02/2021 10:37 AM. Comparison: 4:31 AM. Findings: The heart is normal in size. There is low lung volumes causing crowding of p ulmonary vessels. There is multiple overlying devices. The endotracheal tube and enteric tube and right jugular line. Both lines are not well seen due to superimposition of a defibrillator but are likely adequately positioned. This been interval placement of a second right jugular line with a similar position. There is mild perihilar opacities on the right. There is no pneumothorax. Impression: 1. Right perihilar infiltrates likely described atelectasis. 2. Stable appearance of the chest. ISRRAEL DELANEY MD Aug 02, 2021 12:38
[2021-08-02] MEDS: NOREPINEPHRINE VIAL 32 MG in IV D5W 250ML IV PRN ×2 (12:52→20:13)
[2021-08-02] MEDS ORDERED: POTASSIUM CHLORIDE 15 MEQ in DIALYSIS SOLUTION BGK 0/2.5 5,000 ML IV SCH ×6 (13:00→19:00)
[2021-08-02] MEDS ORDERED: cefTRIAXone IV Push 2 GM VIAL. IVP SCH (13:00)
--- NOTE | 2021-08-02 13:37 | RAD ---
STUDY: US BILATERAL LOWEREXTREMITY VENOUS DOPPLER INDICATION: DVT. TECHNIQUE: Color-flow and pulsed wave duplex ultrasound with compression of venous structures of the bilateral lower extremities. COMPARISON: None Available FINDINGS: Technically difficult study with incomplete visualization of the right distal superficial femoral vei n. Duplex ultrasound with compression of the deep venous structures of the bilateral lower extremities f rom the common femoral vein through the popliteal vein is negative for DVT. The posterior tibial and peroneal veins are segmentally visualized and patent where seen. Normal veno us waveforms and augmentation are noted throughout. IMPRESSION: Technically difficult study. No DVT identified throughout the adequately assessed right and left lowe r extremity veins. Electronically signed by: YASMEEN MEEKS MD (08/02/2021 1:35 PM) YANNICK
[2021-08-02] MEDS ORDERED: IV DEXTROSE 5 %-0.45 % NACL 1,000 ML IV SCH (14:15)
[2021-08-02 16:31] LABS: CREATININE 2.7 mg/dL (0.6-1.0); GFR 25.8; MAGNESIUM 1.8 mg/dL (1.8-2.4); POTASSIUM 3.7 mmol/L (3.5-5.1)
[2021-08-02 16:41] LABS: CALCIUM 5.5 mg/dL (8.5-10.1)
[2021-08-02] MEDS ORDERED: CALCIUM CHLORIDE 1,000 MG/10 ML DISP.SYRIN IVP ONE (18:45)
[2021-08-02] MEDS ORDERED: CALCIUM CHLORIDE 1,000 MG/10 ML DISP.SYRIN IV ONE (19:15)
[2021-08-02] MEDS ORDERED: FAMOTIDINE 20 MG/2 ML VIAL IVP SCH (21:00)
[2021-08-02] MEDS ORDERED: EPINEPHrine SYRINGE 1 MG/10 ML SYRINGE. ONE ×2 (21:40→21:45)
--- NOTE | 2021-08-02 23:10 | NUR ---
1899- unable to get blood pressure reading, Dr. Foster and Sanjeev data communications engineer in room, has tried multiple sticks to get an arterial line. O2 saturation probe also unable to read. Patient extremities cool to touch, is currently on three pressors. 1919- Sanjeev data communications engineer spoke with sister Britany about grim situation for patient. As of now, family wants full code. I spoke with dialysis nurse as CRRT started to have multiple alarms regarding access pressure and rapidly climbing TMP. Able to reposition patient and flush line and system began to run again. 2034- TMP >400, unable to flush line. I spoke with counter cutter regarding overall patient situation. counter cutter reached out to Dr Moss. Dr. Moss called me and we spoke about inability to get blood pressure even with three pressors. Dr. Moss does not want to continue with CRRT as the machine will not be able to adequately function without patient having a blood pressure reading. 2099- Patient unhooked from CRRT machine. I spoke with sister Britany that we had to stop CRRT as the patient was not responding to treatment and the machine has clotted off. I told her patient will not make it through the night. Britany wanted to call another sister about making patient a DNR. 2132- Patient heart rate slowly began to drop, then went asystole, see code blue sheet 2141- Dr. Foster got a hold of Britany on the phone, family did wish to stop compressions after this phone call. TOD [id number] 2229- Family arrived at bedside, understanding of situation. They will call nursing pipe fitter supervisor maintenance with home within next 24 hours. They took all belongings home with them.
[2021-08-03 14:26] LABS: PCO2 ABG < 15 mmHg (35-46)
--- NOTE | 2021-08-04 07:28 | RAD ---
Procedures: Ultrasound guided non-tunneled line placement. Clinical Indication: Acute renal failure needs hemodialysis The procedure, risks, and complications, to include bleeding, infection and pneumothorax potentially requiring chest tube placement were explained to the patient and they understood and wished to procee d. Consent form signed. The Procedure was deemed medically necessary, this was documented on the chart prior to beginning the procedure. The patient was prepped and draped using maximum sterile technique, including the use of: Current dax deline approved cutaneous antisepsis, a large sterile sheet to establish a sterile field. Additionall y the petroleum blending plant operator wore a hat, mask, sterile gloves, a sterile gown during the procedure as well as pract iced acceptable hand hygiene prior to placing the line. If ultrasound was utilized, sterile ultrasoun d technique was followed. Lidocaine epinephrine was used for local anesthesia. Ultrasound-guided access: The neck was scanned by ultrasound, the internal jugular vein is patent an d compressible. Under ultrasound guidance, a single wall puncture was made into the vein followed by wire placement with subsequent tract dilation. An Ultrasound image was saved and sent to PACS. Next a 15 centimeter long hemodialysis catheter was advanced. The lumens were flushed with 1000u/cc hepar inized saline. STAT Chest radiograph was ordered to confirm placement. Results are pending. Complication: none Contrast: none Sedation: none Conclusion: Successful right internal jugular non-tunneled hemodialysis catheter placement. Electronically signed by: Ronnell Carmichael MD (08/04/2021 7:25 AM) [id number]
--- NOTE | 2021-08-05 00:56 | PDOC3 ---
[facility]-Discharge Summary Date of Admission: Date of Admission: Jul 31, 2021 Date of Discharge: Date of Discharge: Aug 02, 2021 Admission Diagnosis: Problems: (1) DKA (diabetic ketoacidosis) Hospital Course: Hospital Course: Chief Complaint Sepsis DKA SEVERO Hypertensive urgency Lactic acidosis Severe protein malnutrition UTI Gram-negative nate bacteremia History of Present Illness History of Present Illness 08/01: Patient seen in ICU with family at bedside. Sister reports that patient is noncompliant with insulin. Urinalysis consistent with acute cystitis. Urine culture and sensitivity pending; continue Rocephin. Patient remains on insulin infusion. Discussed with patient sister, if she is noncompliant with insulin then will discharge she will need an additional oral hypoglycemic agent. Hemoglobin A1c pending; patient is already on Jardiance and Metformin. Critical care time 30 minutes spent reviewing charts, reviewing labs, reviewing imaging, discussion with family, discussion with RN. 08/02: Patient's condition worsened overnight. Early this morning she became bradycardic and went to PEA. CODE BLUE was called and patient was coded for approximately 5 minutes. ROSC was achieved heart rhythm in SVT. Febrile, tachycardic. She was then intubated; consults to pulmonology and nephrology. PEEP 10, FiO2 100%. Bicarb given. She is to receive CRRT today in ICU. Discussed with RN, amiodarone 150 mg infusion if patient remains in SVT; place consult to cardiology. Extensive conversation with family at bedside about poor prognosis. Will order bilateral venous ultrasounds to evaluate PE as etiology of PEA. Lab reported to RN that patient had gram-negative rods in 1 of 4 bottles; patient already on Rocephin, will wait until final blood cultures results before consulting ID. Critical care time 30 minutes spent reviewing charts, reviewing labs, reviewing imaging, discussion with family, and discussion with RN. Events of 08/02 1899- unable to get blood pressure reading, Dr. Sandhu and Sanjeev webbing seamer pound net in room, has tried multiple sticks to get an arterial line. O2 saturation probe also unable to read. Patient extremities cool to touch, is currently on three pressors. 1919- Sanjeev webbing seamer pound net spoke with sister Britany about grim situation for patient. As of now, family wants full code. I spoke with dialysis nurse as CRRT started to have multiple alarms regarding access pressure and rapidly climbing TMP. Able to reposition patient and flush line and system began to run again. 2034- TMP >400, unable to flush line. I spoke with oracle financials developer regarding overall patient situation. oracle financials developer reached out to Dr Moss. Dr. Moss called me and we spoke about inability to get blood pressure even with three pressors. Dr. Moss does not want to continue with CRRT as the machine will not be able to adequately function without patient having a blood pressure reading. 2099- Patient unhooked from CRRT machine. I spoke with sister Britany that we had to stop CRRT as the patient was not responding to treatment and the machine has clotted off. I told her patient will not make it through the night. Britany wanted to call another sister about making patient a DNR. 2132- Patient heart rate slowly began to drop, then went asystole, see code blue sheet 2141- Dr. Sandhu got a hold of Britany on the phone, family did wish to stop compressions after this phone call. TOD [id number] 2229- Family arrived at bedside, understanding of situation. They will call nursing route delivery supervisor with home within next 24 hours. They took all belongings home with them. Disposition: Disposition/Orders: Activity: Activity: Resume previous activity Medications: Home Meds Active Scripts Fluticasone/Salmeterol (ADVAIR 500-50 DISKUS) 1 Each Disk.w.dev, 1 PUFF IH BID, #1 INHALER Prov:SEN SALINAS 06/17/16 Albuterol Sulfate (ALBUTEROL SULFATE NEB SOLN) 2.5 Mg/3 Ml Vial.neb, 1 VIAL NEB PRN Q4HRS PRN for SHORTNESS OF BREATH, #50 VIAL Prov:SEN SALINAS 06/17/16 Albuterol Sulfate (PROAIR HFA INHALER) 8.5 Gm Hfa.aer.ad, 1 PUFF INH Q4HRS PRN for SHORTNESS OF BREATH, #1 INHALER Prov:SEN SALINAS 06/17/16 Benzonatate (BENZONATATE) 200 Mg Capsule, 1 CAP PO TID, #30 CAP Prov:SEN SALINAS 06/17/16 Prednisone (PREDNISONE) 20 Mg Tablet, 40 MG PO DAILY for 5 Days, TAB Prov:SEN SALINAS 06/17/16 Reported Medications Insulin Glargine,Hum.rec.anlog (LANTUS SOLOSTAR) 100 Unit/1 Ml Insuln.pen, 30 UNIT SQ QHS for blood sugar, #15 ML 3 Refills 08/01/21 Sennosides/Docusate Sodium (Senna-Docusate Sodium Tablet) 1 Each Tablet, 1 TAB PO DAILY for for 20 Days, #20 TAB 0 Refills 08/01/21 Fluticasone/Salmeterol (ADVAIR 100-50 DISKUS) 1 Each Disk.w.dev, 1 PUFF IH BID for , #1 INHALER 5 Refills 08/01/21 Sitagliptin Phosphate (JANUVIA) 100 Mg Tablet, 1 TAB PO DAILY for blood sugar, #30 TAB 5 Refills 08/01/21 Montelukast Sodium (MONTELUKAST SODIUM TABLET ) 10 Mg Tablet, 10 MG PO HS for FOR ASTHMA, TAB 0 Refills 08/01/21 Metformin Hcl (METFORMIN HCL) 1,000 Mg Tablet, 1000 MG PO BIDWMEALS for blood sugar, TAB 08/01/21 Hydrochlorothiazide (Hydrochlorothiazide) 25 Mg Tablet, 25 MG PO DAILY for bp, TAB 08/01/21 Lisinopril (LISINOPRIL) 40 Mg Tablet, 1 TAB PO DAILY for bp, #30 TAB 5 Refills 08/01/21 Lurasidone Hcl (LATUDA) 20 Mg Tablet, 1 TAB PO QHS for for 30 Days, #30 TAB 0 Refills 08/01/21 Albuterol Sulfate (Proair Hfa) 8.5 Gm Hfa.aer.ad, 2 PUFF IH PRN Q4-6HRS PRN for wheezing for 21 Days, #1 INHALER 0 Refills 08/01/21 Albuterol Sulfate (ALBUTEROL SULFATE NEB SOLN) 2.5 Mg/3 Ml Vial.neb, 1 VIAL NEB PRN Q4HRS PRN for SHORTNESS OF BREATH, #50 VIAL 08/01/21 Dapagliflozin Propanediol (FARXIGA) 5 Mg Tablet, 5 MG PO DAILY for blood sugar, TAB 08/01/21 Empagliflozin (Jardiance) 10 Mg Tablet, 10 MG PO DAILY for Type 2 diabetes, TAB 08/01/21 Amlodipine Besylate (AMLODIPINE BESYLATE) 10 Mg Tablet, 10 MG PO DAILY for bp, TAB 08/01/21 Fluoxetine Hcl (FLUOXETINE HCL) 40 Mg Capsule, 1 CAP PO DAILY for , #30 CAP 2 Refills 08/01/21 Scheduled Amlodipine Besylate (Amlodipine Besylate), 10 MG PO DAILY, (Reported) Benzonatate (Benzonatate), 1 CAP PO TID Dapagliflozin Propanediol (Farxiga), 5 MG PO DAILY, (Reported) Empagliflozin (Jardiance), 10 MG PO DAILY, (Reported) Fluoxetine Hcl (Fluoxetine Hcl), 1 CAP PO DAILY, (Reported) Fluticasone/Salmeterol (Advair 500-50 Diskus), 1 PUFF IH BID Fluticasone/Salmeterol (Advair 100-50 Diskus), 1 PUFF IH BID, (Reported) Hydrochlorothiazide (Hydrochlorothiazide), 25 MG PO DAILY, (Reported) Insulin Glargine,Hum.rec.anlog (Lantus Solostar), 30 UNIT SQ QHS, (Reported) Lisinopril (Lisinopril), 1 TAB PO DAILY, (Reported) Lurasidone Hcl (Latuda), 1 TAB PO QHS, (Reported) Metformin Hcl (Metformin Hcl), 1,000 MG PO BIDWMEALS, (Reported) Montelukast Sodium (Montelukast Sodium Tablet ), 10 MG PO HS, (Reported) Prednisone (Prednisone), 40 MG PO DAILY Sennosides/Docusate Sodium (Senna-Docusate Sodium Tablet), 1 TAB PO DAILY, (Reported) Sitagliptin Phosphate (Januvia), 1 TAB PO DAILY, (Reported) Scheduled PRN Albuterol Sulfate (Proair Hfa Inhaler), 1 PUFF INH Q4HRS PRN for SHORTNESS OF BREATH Albuterol Sulfate (Albuterol Sulfate Neb Soln), 1 VIAL NEB PRN Q4HRS PRN for SHORTNESS OF BREATH Albuterol Sulfate (Albuterol Sulfate Neb Soln), 1 VIAL NEB PRN Q4HRS PRN for SHORTNESS OF BREATH, (Reported) Albuterol Sulfate (Proair Hfa), 2 PUFF IH PRN Q4-6HRS PRN for wheezing, (Reported) Justicifation of Admission Dx: Justifications for Admission: Justification of Admission Dx: Yes DKA: PACHECOA JOSE SANDHU MD Aug 05, 2021 00:56
== END 2021-08-02 23:32 | DRG 871 ==
LOC: ER 16:34 → 1 WEST ICU 19:05
PROVIDERS: ADMIT Family Medicine; ATTEND Family Medicine
PROC: 5A1935Z Respiratory Ventilation, Less than 24 Consecutive Hours (ICD-10-PCS; principal; 2021-08-02)
PROC: 0BH17EZ Insertion of Endotracheal Airway into Trachea, Via Natural or Artificial Opening (ICD-10-PCS; 2021-08-02)
PROC: 02HV33Z Insertion of Infusion Device into Superior Vena Cava, Percutaneous Approach (ICD-10-PCS; 2021-08-02)
PROC: 30233N1 Transfusion of Nonautologous Red Blood Cells into Peripheral Vein, Percutaneous Approach (ICD-10-PCS; 2021-08-02)
DX: A41.9 Sepsis, unspecified organism (principal); E11.10 Type 2 diabetes mellitus with ketoacidosis without coma; E43 Unspecified severe protein-calorie malnutrition; J96.00 Acute respiratory failure, unspecified whether with hypoxia or hypercapnia; R65.21 Severe sepsis with septic shock; I47.1 Supraventricular tachycardia; J98.11 Atelectasis; N17.9 Acute kidney failure, unspecified; N30.00 Acute cystitis without hematuria; Z68.44 Body mass index [BMI] 60.0-69.9, adult; B96.89 Other specified bacterial agents as the cause of diseases classified elsewhere; E66.01 Morbid (severe) obesity due to excess calories; G47.33 Obstructive sleep apnea (adult) (pediatric); I10 Essential (primary) hypertension; I16.0 Hypertensive urgency; I46.9 Cardiac arrest, cause unspecified; I49.01 Ventricular fibrillation; J45.909 Unspecified asthma, uncomplicated; Z79.4 Long term (current) use of insulin; Z82.49 Family history of ischemic heart disease and other diseases of the circulatory system; Z87.730 Personal history of (corrected) cleft lip and palate; Z91.14 Patient's other noncompliance with medication regimen; Z91.19 Patient's noncompliance with other medical treatment and regimen; Z88.8 Allergy status to other drugs, medicaments and biological substances
CPT/HCPCS: 36415; 36430; 36556; 36600; 70450; 71045; 76937; 80048; 80053; 81001; 82805; 82947; 82962; 83036; 83605; 83735; 84100; 84443; 84484; 84702; 85007; 85025; 86706; 86850; 86900; 86901; 86920; 87040; 87077; 87086; 87186; 87340; 87428; 93005; 93970; 94002; 96361; 96374; C1892; J0171; J0461; J0696; J1644; J1815; J2250; J2370; J2405; J3010; J3370; J3475; J3480; J3490; J7030; J7040; J7042; J7050; J7060; J7120; P9016; P9046; U0003; 99285-25; G0378